=== PATIENT | male | born 1950 | race Caucasian/White ===

== ENCOUNTER 2016-07-25 13:35 | Inpatient (IN) | payer OTHER ==
[~2016-07-25] VITALS: Ht 182.9 cm; Wt 106.6 kg
[~2016-07-25 13:35] MED LIST: ATIVAN1 MG PO; CLONIDINE0.1 MG PO; CRESTOR20 MG PO; ESCITALOPRAM20 MG PO; FELODIPINE10 MG PO; LOMOTIL 2.5-0.1 EACH PO; METOPROLOL SUC100 MG PO; PROMETHAZINE HC25 M3 PO
--- NOTE | 2016-07-25 14:10 | NUR ---
PT BIBA FROM HOME S/P MAKING REMARKS TO HIS SISTER IN LAW ON THE PHONE. STATES THAT HE WANTS TO PUT A GUN IN HIS MOUTH AND KILL HIMSELF. STATES THAT HIS IS IN [facility] FOR REHAB AND HE HAS BEEN HAVING A HARD TIME DEALING WITH EVERYTHING. PT EMOTIONAL AT THIS TIME. ADMITS TO DRINKING A FEW SHOTS TODAY, DENIES ETOH DAILY. DENIES FEELING SI/HI AT THIS TIME. PT CALM/COOPERATIVE.
--- NOTE | 2016-07-25 14:12 | ED PSYCHIATRIC COMPLAINT ---
See Addendum History of Present Illness General Chief Complaint: Psychiatric Related Complaint Stated Complaint: BIBA +SI/ETOH Source: patient, EMS, police Exam Limitations: no limitations Vital Signs & Intake/Output Vital Signs & Intake/Output Vital Signs Date Time Temp Pulse Resp B/P B/P Pulse O2 O2 Flow FiO2 Mean Ox Delivery Rate 07/25 1753 97.9 95 20 140/94 100 Room Air 07/25 1528 97.9 83 18 139/88 98 Room Air 07/25 1428 98.0 88 18 133/61 98 Room Air Allergies Coded Allergies: NO KNOWN ALLERGIES (07/31/13) Reconcile Medications CLONIDINE HCL (Clonidine) 0.1 MG TABLET 1 TAB PO QPM withdrawal Diphenoxylate HCl/Atropine (Lomotil 2.5-0.025 MG Tablet) 2.5 MG-0.025 MG TABLET 1 TAB PO 4 TIMES/DAY PRN diarrhea Escitalopram Oxalate 20 MG TABLET 1 TAB PO DAILY DEPRESSION/ANXIETY (Reported ) Felodipine (Felodipine ER) 10 MG TAB.ER.24H 1 TAB PO DAILY BP (Reported) Lorazepam (Ativan) 1 MG TAB 1 TAB PO TID PRN ANXIETY/WITHDRAWAL [id number] to Stop at ADM: Metoprolol Succinate 100 MG TAB.ER.24H 100 MG PO DAILY BLOOD PRESSURE ( Reported) Promethazine HCl 25 MG TABLET 1 TAB PO Q6P PRN nausea Rosuvastatin Calcium (Crestor) 20 MG TABLET 1 TAB PO DAILY HIGH CHOLESTROL ( Reported) Triage Nurses Notes Reviewed? yes Onset: Abrupt Duration: unknown duration Severity: moderate, severe HPI: 65-year-old male brought in by ambulance on a PEC from police for suicidal ideation. Patient reports that he's been feeling very depressed lately. His recently had a stroke. He does not have any history of heavy drinking but reports some intermittent heavy drinking recently. He called his [id number] today. He made a comment that he wanted to put a gun in his mouth and just end it all. Denies any prior history of subtle thoughts. He reports it was a fleeting thought. He does admit to drinking a heavy amount of alcohol this morning. Patient is very emotional and crying. He does not have any other family members of the then the 2 mentioned already. His is currently at a long-term. When the police apparently arrived she was not answering his door. EMS reports they did not find any weapons and the patient denies owning any weapons. (ADAM SAMANO) Past History Travel History Traveled to [place] past 21 day No Medical History Any Pertinent Medical History? see below for history Cardiovascular: hypertension Surgical History Surgical History: L LEG SURGERY Psychosocial History Who do you live with Significant Other What is your primary language Syriac Family History Hx Contributory? No (ADAM SAMANO) Review of Systems Review of Systems Constitutional: Reports: no symptoms. EENTM: Reports: no symptoms. Respiratory: Reports: no symptoms. Cardiovascular: Reports: no symptoms. GI: Reports: no symptoms. Genitourinary: Reports: no symptoms. Musculoskeletal: Reports: no symptoms. Skin: Reports: no symptoms. Neurological/Psychological: Reports: see HPI. Hematologic/Endocrine: Reports: no symptoms. Immunologic/Allergic: Reports: no symptoms. All Other Systems: Reviewed and Negative (ADAM SAMANO) Physical Exam Physical Exam General Appearance: well developed/nourished, mild distress Head: atraumatic Eyes: Bilateral: normal appearance, EOMI. Ears, Nose, Throat: normal ENT inspection, hearing grossly normal Neck: normal inspection Respiratory: no respiratory distress Cardiovascular: regular rate/rhythm Extremities: normal range of motion Neurological/Psychiatric: awake, agitated, depressed affect, crying Appearance/Memory/Insight: disheveled Behavoir/Eye Contact/Speech: avoids eye contact, cooperative Thoughts/Hallucinations: no apparent hallucination Skin: intact, normal color, warm/dry SAD PERSONS SAD PERSONS Response Value Male Sex? yes 1 Age <19 or >45 years? yes 1 Depression/Hopelessness? yes 2 Excessive Ethanol/Drug Use? yes 1 Social Support? has support 0 Total 5 SAD PERSONS Done? yes (ADAM SAMANO) Progress Differential Diagnosis: dementia, drug intoxication, drug overdose, drug withdrawal, electrolyte abnormality, encephalitis, hypoglycemia, hypothyroidism, IC hem/mass/tumor, meningitis, depression, anxiety, bipolar Plan of Care: Orders Procedure Date/time Status Continuous Observation Monitor 07/25 1922 Active ED CRISIS PSYCH CONSULT 07/25 1406 Active URINE DRUGS OF ABUSE 07/25 1340 Complete ETHANOL 07/25 1340 Complete COMPREHENSIVE METABOLIC PANEL 07/25 1340 Complete CBC WITHOUT DIFFERENTIAL 07/25 1340 Complete Laboratory Tests 07/25/16 1424: Anion Gap 15, Estimated GFR > 60, BUN/Creatinine Ratio 13.3, Glucose 160 H, Calcium 8.8, Total Bilirubin 0.7, AST 53, ALT 83 H, Alkaline Phosphatase 85, Total Protein 6.8, Albumin 3.7, Globulin 3.1, Albumin/Globulin Ratio 1.2, CBC w Diff NO MAN DIFF REQ, RBC 4.67 L, MCV 89.3, MCH 31.3 H, RDW 14.7 H, MPV 7.4, Gran % 30.4 L, Lymphocytes % 57.5 H, Monocytes % 9.7 H, Eosinophils % 0.9, Basophils % 1.5, Absolute Granulocytes 1.3 L, Absolute Lymphocytes 2.5, Absolute Monocytes 0.4, Absolute Eosinophils 0, Absolute Basophils 0.1, PUBS MCHC 35.0, Serum Alcohol 219.0 07/25/16 1355: Urine Opiates Screen < 100.00, Methadone Screen < 40, Barbiturate Screen < 60, Ur Phencyclidine Scrn < 6.00, Amphetamines Screen < 100, U Benzodiazepines Scrn < 85, Urine Cocaine Screen < 50, Urine Cannabis Screen < 5.00 Hand-Off Endorsed To: RYANN BOB,IZZY Rivera Endorsed Time: 2219 Pending: consult (crisis) (ADAM SAMANO) Departure Departure Disposition: STILL A PATIENT Condition: Stable Clinical Impression Primary Impression: Suicidal ideation Secondary Impressions: Depression Referrals: PATIENT HAS NO PRIMARY CARE DR (PCP/Family) Departure Forms: Customer Survey General Discharge Information (ADAM SAMANO) PA/WASTE CHOPPER Co-Sign Statement Statement: ED Attending supervision documentation- [x] I saw and evaluated the patient. I have also reviewed all the pertinent lab results and diagnostic results. I agree with the findings and the plan of care as documented in the PA's/WASTE CHOPPER's documentation. [] I have reviewed the ED Record and agree with the PA's/WASTE CHOPPER's documentation. [] Additions or exceptions (if any) to the PAs/WASTE CHOPPER's note and plan are summarized below: [] (OLIVERIO OROZCO DO
[2016-07-25 14:32] LABS: ABSOLUTE BASOPHIL COUNT 0.1 /CUMM (0.0-0.2); ABSOLUTE EOSINOPHIL COUNT 0 /CUMM (0.0-0.7); ABSOLUTE GRANULOCYTE CT 1.3 /CUMM (1.4-6.5); ABSOLUTE LYMPH COUNT 2.5 /CUMM (1.2-3.4); ABSOLUTE MONOCYTE COUNT 0.4 /CUMM (0.10-0.60); BASOPHIL % 1.5 % (0.0-2.0); EOSINOPHIL % 0.9 % (0-5); GRANULOCYTE % 30.4 % (42.2-75.2); HEMATOCRIT 41.7 % (42-52); MEAN CORPUSCULAR HGB 31.3 PG (27.0-31.0); MEAN CORPUSCULAR VOLUME 89.3 FL (80.0-94.0); MEAN PLATELET VOLUME 7.4 FL (7.4-10.4); PLATELET COUNT 315 /CUMM (130-400); RBC DISTRIBUTION WIDTH 14.7 % (11.5-14.5); RED BLOOD CELL CT 4.67 /CUMM (4.70-6.10); WHITE BLOOD CELL COUNT 4.4 /CUMM (4.8-10.8)
--- NOTE | 2016-07-25 15:15 | NUR ---
REPORT RECEIVED. PT SLEEPING AT THIS TIME WITH REGULAR BREATHING PATTERN. SITTER AT THE DOOR.
--- NOTE | 2016-07-25 15:55 | NUR ---
PT ALERT AND ORIENTED X 3. DENIES SI/HI. PT STATING EMOTIONALLY "I JUST WANT TO GO HOME" EMOTIONAL SUPPORT PROVIDED. INFORMED WAIT TIME. PT CALM AND COOPERATIVE.
--- NOTE | 2016-07-25 16:08 | NUR ---
FINGER FOOD HAMBURGER TRAY ORDERRED FROM [facility].
--- NOTE | 2016-07-25 16:11 | NUR ---
PT KEEPS GETTING OUT OF BED WANTING TO GO HOME. ADVISED PT TO FOLLOW HOSPITAL PROTOCOL. PT REDIRECTABLE. ATIVAN 1MG PO GIVEN ORDERED. AWITING FINGER FOOD.
--- NOTE | 2016-07-25 17:05 | NUR ---
PT SLEEPING AT THIS TIME WITH NO REGULAR BREATHING PATTERNS.
--- NOTE | 2016-07-25 17:30 | NUR ---
FINGER FOOD GIVEN.
--- NOTE | 2016-07-25 18:20 | NUR ---
OCCASIONAL PT GETS OUT OF BED AND SAYING "I CAN NOT STAY HERE OVER NIGHT. I HAVE TO GO HOME." EXPLAINED PT TO FOLLOW HOSPITAL POLICY.
--- NOTE | 2016-07-25 18:24 | NUR ---
PT SPEAKING TO FAMILY MEMBER ON PHONE.
--- NOTE | 2016-07-25 18:48 | NUR ---
FAMILY MEMBERS AT BEDSIDE.
--- NOTE | 2016-07-25 19:16 | NUR ---
PT GETS ANXIOUS AND EMOTIONAL AT TIMES. KEEPS STATING "I CAN NOT STAY HERE. I HAVE TO GO HOME" PT REDIRECTED AND EXPLAINED THAT PT WILL BE EVALUATED BY CRISIS TOMORROW.
--- NOTE | 2016-07-25 19:19 | NUR ---
ASSUMED CARE OF PT PER CHAYA VIDAL. PT RESTING IN RM WITH RR, SITTER AT BEDSIDE FOR SAFETY.
--- NOTE | 2016-07-25 19:19 | NUR ---
FLAKITA GARCIA Nurse Note by: PETE ROWELL I agree with the TRAVELING OPERATOR findings/evaluation of this patient's condition. Entered by: PETE ROWELL Date: 07/25/16 Time: 1918
--- NOTE | 2016-07-25 19:57 | NUR ---
PT MEDICATED WITH 1MG ATIVAN PO TAB AND 50MG BENADRYL PO PER EMAR FOR ANXIETY. THIS RN EXPLAINED TO PT THAT THE MEDICATIONS TAKE A WHILE TO START WORKING AND THIS RN WILL CHECK BACK WITH PT WITHIN 1 HR TO SEE IF PT IS STILL FEELING ANXIOUS.
--- NOTE | 2016-07-25 20:15 | NUR ---
PT RESTING IN RM WITH RR, SITTER IN PLACE. WILL CONTINUE TO MONITOR
--- NOTE | 2016-07-25 21:24 | NUR ---
Crisis consult received, however the patient is not appropriate for evaluation, given that he has a high BAL. The patient will be held overnight and evaluated in the AM. Agusto Nugent met with the patient earlier this evening to inform him that he will not be evaluated until after his BAL is under the legal limit.
--- NOTE | 2016-07-25 22:35 | NUR ---
PT RESTING, PT STATES STILL ANXIOUS, REQUESTING A MEDICATION TO SLEEP. DR GARZON INFORMED
--- NOTE | 2016-07-25 23:50 | NUR ---
PT MEDICATED WITH 5MG MELATONIN PER EMAR
[2016-07-26] VITALS (8 sets, daily range): BP systolic 115–152; BP diastolic 78–108
--- NOTE | 2016-07-26 00:26 | NUR ---
PT ASLEEP AT THIS TIME W/RR NOTED. SITTER IN PLACE FOR SAFETY.
--- NOTE | 2016-07-26 03:05 | NUR ---
PT REMAINS ASLEEP AT THIS TIME W/ RR NOTED. NO APPARENT DISTRESS. SITTER REMAINS IN CLEAR VIEW. WILL CONTINUE TO MONITOR.
--- NOTE | 2016-07-26 05:34 | NUR ---
PT REMAINS ASLEEP AT THIS TIME WITH RR NOTED. NAD. SITTER REMAINS IN CLEAR VIEW. WILL CONTINUE TO MONITOR.
--- NOTE | 2016-07-26 06:41 | NUR ---
PT AWOKE FOR VITAL SIGNS. VSS. SITTER REMAINS IN PLACE FOR SAFETY. WILL CONTINUE TO MONITOR.
--- NOTE | 2016-07-26 07:20 | NUR ---
RESTING ON BED. RR WNL. AWAITING INITIAL CRISIS EVAL THIS AM. Informed waiting has been performed.
--- NOTE | 2016-07-26 07:34 | NUR ---
CRISIS AT BEDSIDE.
--- NOTE | 2016-07-26 08:10 | ED PSYCH CRISIS CONSULTATION ---
Crisis Consult Basic Assessment Date of Consult: 07/26/16 Responsible Person/Accompanied By: ARGENIS on PEER Insurance Authorization: Insurance #1: Insurance name: NEYMAR Phone number: Policy number: [id number] Group number: [id number] Authorization number: ED Provider: Patient's ED Provider: ADAM SAMANO Primary Care Physician: Patient's PCP: PATIENT HAS NO PRIMARY CARE DR PCP's Phone Number: Current Psychiatrist: None Chief Complaint: Psychiatric Related Complaint Patient's Quote: " I just had a bad day yesterday" Present Illness: The patient is a 65 year old, , male brought in by ambulance, on a PEER, after making a suicidal statement. The patient presented anxious with depressed mood and was tearful throughout the evaluation. The patient reports that he has been feeling very overwhelmed since his had a stroke on 2015. The patient notes that she is currently at [facility] and having difficultly communicating and remains paralyzed on her right arm. The patient notes that he has been struggling to take care of himself and the bills. He reports that he fell behind on the mortgage, his car broke and he owes money to the IRS, resulting in them garnishing $500 from his paycheck weekly. 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 He states that he did not go into work yesterday and that instead he drank about 5-6 nippers of "Fireball. " While he was intoxicated he contacted his [id number] Raysa Vazquez and made comments about killing himself with a gun, of note he denies having any access to guns. He denies any current alcohol abuse, despite having a history of abusing alcohol and Oxycontin. He reports that he only drinks alcohol 1x weekly and will have "4 nips at a time." He denies any current or history of mental health or substance abuse issues or treatment. He notes that he also felt very overwhelmed when his first had the stroke, however he was able to "get himself out of it." He denies any current or history of SI / HI / AH / VH. He would like to go home to his 2 cats and is not sure that he would like any outpatient treatment. SW left a note for his sister in law- Raysa VazquezEgiadl-[phone]- and will await a call back for collateral. Patient's Address: [address] [place] [address] Other Phone Number: Who Do You Live With? Other (see notes) (2 cats and usually ) Family/Informants Interviewed: Message left for the patients sister in law Raysa Vazquez [phone] Allergies - Coded Allergies: NO KNOWN ALLERGIES (07/31/13) Current Medications - Scheduled Medications CLONIDINE HCL (Clonidine) 0.1 MG TABLET 1 TAB PO QPM withdrawal #15 TAB Prescribed by POOJA SANTACRUZ MD on 02/14/14 Escitalopram Oxalate 20 MG TABLET 1 TAB PO DAILY DEPRESSION/ANXIETY #30 ( Reported) Entered as Reported by WILFRED KING on 02/14/14 1547 Felodipine (Felodipine ER) 10 MG TAB.ER.24H 1 TAB PO DAILY BP #30 (Reported) Entered as Reported by WILFRED KNIG on 02/14/14 1546 Metoprolol Succinate 100 MG TAB.ER.24H 100 MG PO DAILY BLOOD PRESSURE #90 ( Reported) Entered as Reported by ANTHONY KRISHNAMURTHY on 07/31/13 0732 Rosuvastatin Calcium (Crestor) 20 MG TABLET 1 TAB PO DAILY HIGH CHOLESTROL #30 TAB (Reported) Entered as Reported by ANTHONY KRISHNAMURTHY on 07/31/13 0730 Scheduled PRN Medications Diphenoxylate HCl/Atropine (Lomotil 2.5-0.025 MG Tablet) 2.5 MG-0.025 MG TABLET 1 TAB PO 4 TIMES/DAY PRN diarrhea #20 TAB Prescribed by JACQUELINE NOWAK PA-C on 04/02/16 Lorazepam (Ativan) 1 MG TAB 1 TAB PO TID PRN ANXIETY/WITHDRAWAL #10 Prescribed by POOJA SANTACRUZ MD on 02/14/14 Promethazine HCl 25 MG TABLET 1 TAB PO Q6P PRN nausea #20 TAB Prescribed by JACQUELINE NOWAK PA-C on 04/02/16 Laboratory Results: Laboratory Tests 07/25/16 1424: Anion Gap 15, Estimated GFR > 60, BUN/Creatinine Ratio 13.3, Glucose 160 H, Calcium 8.8, Total Bilirubin 0.7, AST 53, ALT 83 H, Alkaline Phosphatase 85, Total Protein 6.8, Albumin 3.7, Globulin 3.1, Albumin/Globulin Ratio 1.2, CBC w Diff NO MAN DIFF REQ, RBC 4.67 L, MCV 89.3, MCH 31.3 H, RDW 14.7 H, MPV 7.4, Gran % 30.4 L, Lymphocytes % 57.5 H, Monocytes % 9.7 H, Eosinophils % 0.9, Basophils % 1.5, Absolute Granulocytes 1.3 L, Absolute Lymphocytes 2.5, Absolute Monocytes 0.4, Absolute Eosinophils 0, Absolute Basophils 0.1, PUBS MCHC 35.0, Serum Alcohol 219.0 07/25/16 1355: Urine Opiates Screen < 100.00, Methadone Screen < 40, Barbiturate Screen < 60, Ur Phencyclidine Scrn < 6.00, Amphetamines Screen < 100, U Benzodiazepines Scrn < 85, Urine Cocaine Screen < 50, Urine Cannabis Screen < 5.00 Past History Past Medical History Cardiovascular: hypertension Past Surgical History Surgical History: L LEG SURGERY Psychosocial History Strengths/Capabilities: The patient does have stable employment and housing. He does have a desire to feel better. Physical Limitations (Interventions): None noted Psychiatric Treatment History Psych Treatment Psychiatric Treatment No Inpatient Treatment No Outpatient Treatment No Location of Treatment N/A Reason for Treatment N/A Dates of Treatment N/A Response to Treatment N/A Diagnosis by History: N/A Substance Use/Abuse History Drug Use/Abuse Substances Used/Abused Yes Substance Used/Abused Alcohol First Use 18 years old Last Used Yesterday: 07/25/2016 How much used/taken "5-6 nips of fireball" How often 1x weekly For how long Unclear Route of use Oral Substance Abuse Treatment Substance Abuse Treatment Past Substance Abuse TX No Inpatient Treatment No Outpatient Treatment No Location of Treatment N/A Reason for Treatment N/A Dates of Treatment N/A Response to Treatment N/A Comments: N/A Current Mental Status Mental Status Orientation: Person, Place, Situation Affect: Anxious, Depressed Speech: WNL Neuro-vegetative: Appetite Decreased, Concentration Poor, Energy Decreased Appearance Appearance- Dress/Hygiene: The patient was sitting in bed, disheveled, anxious, with good eye contact and participation in the evaluation. Behaviors Thought Process: WNL Thought Content: WNL Memory: WNL Insight: WNL SI/HI Risk Assessment Past Suicidal Ideation/Attempts No Current Suicidal Ideation/Att No (Made statements to kill self) Past Homicidal Ideation/Att: No Current Homicidal Ideation/Attempts No Degree of Intent: The patient drank alcohol yesterday and called his sister-in- law and made suicidal statements. He made comments about shooting himself with a gun. Danger To: Self Gravely Disabled: N/A Risk Factors: substance abuse, isolate/no social support, male, limited support Lethality Ratin PTSD Checklist PTSD Done? patient declined (Pt. denies trauma or abuse tx) ED Management Sitter: Yes Restraints: No DSM5/PS Stressors/Medical Prob Diagnosis' (DSM 5, Stressors, Medical): F32.9 Unspecified depressive disorder F10.20 Alcohol Use disorder, moderate Medical: High Blood Pressure Stressors: Medical issues with and finances Current GAF: 28 Comments: N/A Departure Disposition Psych Medical Clearance Date: 07/26/16 Medically Cleared at: 0700 Time Started: 0715 Time Ended: 08 Psychiatrist Consulted: Isiah Banks MD Date Disposition Established: 07/26/16 Time Disposition Established: 814 Plan for Disposition - Modality: Inpatient Psychiatry Facility: [facility] Rationale for Disposition: The patient presented to the ED on a PEER, after making suicidal statements to his sister in law. The patient stated that he wanted to shoot himself with a gun. The patient denies feeling suicidal today, however does admit to increasing depression and stressors. His had a stroke on 2015 and has been at treatment at [facility]. He has been having difficulty taking care of his finances; recently had his car break, the IRS is garnishing wages and he is behind on mortgage. He has been using alcohol and was intoxicated when he arrived. Case discussed with Dr. Banks and he finds the patient to be an acute risk to self and in need of an inpatient hospitalization at this time. Type of IP Admission: Voluntary Additional Instructions: N/A Referrals PATIENT HAS NO PRIMARY CARE DR (PCP/Family)
--- NOTE | 2016-07-26 08:15 | NUR ---
PLAN IS FOR ADMISSION TO [facility]. Informed waiting has been performed.
--- NOTE | 2016-07-26 09:34 | IP CRISIS DIAG ASSESS PSYCH ---
See Addendum Diagnostic Assessment Basic Assessment Insurance Authorization: Insurance #1: Insurance name: NEYMAR Phone number: Policy number: [id number] Group number: [id number] Authorization number: Primary Care Physician: Patient's PCP: PATIENT HAS NO PRIMARY CARE DR PCP's Phone Number: Patient's Quote: " I just had a bad day yesterday" Present Illness: The patient is a 65 year old, , male brought in by ambulance, on a PEER, after making a suicidal statement. The patient presented anxious with depressed mood and was tearful throughout the evaluation. The patient reports that he has been feeling very overwhelmed since his had a stroke on 2015. The patient notes that she is currently at [facility] and having difficultly communicating and remains paralyzed on her right arm. The patient notes that he has been struggling to take care of himself and the bills. He reports that he fell behind on the mortgage, his car broke and he owes money to the IRS, resulting in them garnishing $500 from his paycheck weekly. 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 He states that he did not go into work yesterday and that instead he drank about 5-6 nippers of "Fireball. " While he was intoxicated he contacted his ndquaa-az-rpz Raysa Vazquez and made comments about killing himself with a gun, of note he denies having any access to guns. He denies any current alcohol abuse, despite having a history of abusing alcohol and Oxycontin. He reports that he only drinks alcohol 1x weekly and will have "4 nips at a time." He denies any current or history of mental health or substance abuse issues or treatment. He notes that he also felt very overwhelmed when his first had the stroke, however he was able to "get himself out of it." He denies any current or history of SI / HI / AH / VH. He would like to go home to his 2 cats and is not sure that he would like any outpatient treatment. SW left a note for his sister in law- Raysa VazquezPvepuc-[phone]- and will await a call back for collateral. Patient's Address: [address] [place] [address] Other Phone Number: Who Do You Live With? Other (see notes) (2 cats and usually ) Feel Safe Where You Live? Yes Feel Safe in Your Relationship Yes Marital Status: Do You Have Children? No Primary Language? Divehi Family/Informants Interviewed: Message left for the patients sister in law Raysa Vazquez [phone] Allergies - Coded Allergies: NO KNOWN ALLERGIES (07/31/13) Current Medications - Scheduled Medications CLONIDINE HCL (Clonidine) 0.1 MG TABLET 1 TAB PO QPM withdrawal #15 TAB Prescribed by POOJA SANTACRUZ MD on 02/14/14 Escitalopram Oxalate 20 MG TABLET 1 TAB PO DAILY DEPRESSION/ANXIETY #30 ( Reported) Entered as Reported by WILFRED KING on 02/14/14 1547 Felodipine (Felodipine ER) 10 MG TAB.ER.24H 1 TAB PO DAILY BP #30 (Reported) Entered as Reported by WILFRED KING on 02/14/14 1546 Metoprolol Succinate 100 MG TAB.ER.24H 100 MG PO DAILY BLOOD PRESSURE #90 ( Reported) Entered as Reported by ANTHONY KRISHNAMURTHY on 07/31/13 0732 Rosuvastatin Calcium (Crestor) 20 MG TABLET 1 TAB PO DAILY HIGH CHOLESTROL #30 TAB (Reported) Entered as Reported by ANTHONY KRISHNAMURTHY on 07/31/13 0730 Scheduled PRN Medications Diphenoxylate HCl/Atropine (Lomotil 2.5-0.025 MG Tablet) 2.5 MG-0.025 MG TABLET 1 TAB PO 4 TIMES/DAY PRN diarrhea #20 TAB Prescribed by JACQUELINE NOWAK PA-C on 04/02/16 Lorazepam (Ativan) 1 MG TAB 1 TAB PO TID PRN ANXIETY/WITHDRAWAL #10 Prescribed by POOJA SANTACRUZ MD on 02/14/14 Promethazine HCl 25 MG TABLET 1 TAB PO Q6P PRN nausea #20 TAB Prescribed by JACQUELINE NOWAK PA-C on 04/02/16 Consequences of Psych Med Use: N/A Comment: N/A Lab Results: Laboratory Tests 07/25/16 1424: Anion Gap 15, Estimated GFR > 60, BUN/Creatinine Ratio 13.3, Glucose 160 H, Calcium 8.8, Total Bilirubin 0.7, AST 53, ALT 83 H, Alkaline Phosphatase 85, Total Protein 6.8, Albumin 3.7, Globulin 3.1, Albumin/Globulin Ratio 1.2, CBC w Diff NO MAN DIFF REQ, RBC 4.67 L, MCV 89.3, MCH 31.3 H, RDW 14.7 H, MPV 7.4, Gran % 30.4 L, Lymphocytes % 57.5 H, Monocytes % 9.7 H, Eosinophils % 0.9, Basophils % 1.5, Absolute Granulocytes 1.3 L, Absolute Lymphocytes 2.5, Absolute Monocytes 0.4, Absolute Eosinophils 0, Absolute Basophils 0.1, PUBS MCHC 35.0, Serum Alcohol 219.0 07/25/16 1355: Urine Opiates Screen < 100.00, Methadone Screen < 40, Barbiturate Screen < 60, Ur Phencyclidine Scrn < 6.00, Amphetamines Screen < 100, U Benzodiazepines Scrn < 85, Urine Cocaine Screen < 50, Urine Cannabis Screen < 5.00 Toxicology Screen Completed? Yes Results: negative Symptoms of Use: N/A Past History Past Medical History Medical History: Hypertension, hip replaced Past Surgical History Surgical History non-contributory Abuse/Trauma History Trauma History/Current Trauma: Denies Legal History Current Legal Status: none Have you ever been arrested? 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 He does have a desire to feel better. Physical Limitations (Interventions): None noted Psychiatric Treatment History Psych Treatment Psychiatric Treatment No Inpatient Treatment No Outpatient Treatment No Location of Treatment N/A Reason for Treatment N/A Dates of Treatment N/A Response to Treatment N/A Diagnosis by History: N/A Risk Factors: substance abuse, isolate/no social support, male, limited support Substance Use/Abuse History Drug Use/Abuse minimum 12mo Hx Substances Used/Abused Yes Substance Used/Abused Alcohol First Use 18 years old Last Used Yesterday: 07/25/2016 How much used/taken "5-6 nips of fireball" How often 1x weekly For how long Unclear Route of use Oral Substance Abuse Treatment Substance Abuse Treatment Past Substance Abuse [place] No Inpatient Treatment No Outpatient Treatment No Location of Treatment N/A Reason for Treatment N/A Dates of Treatment N/A Response to Treatment N/A Comments: N/A Sexual History Sexual Concerns: None noted Education History Highest Level of Education: Associates Degree Preferred Learning Style: Unknown Current Mental Status Mental Status Orientation: Person, Place, Situation Affect: Anxious, Depressed Speech: WNL Neuro-vegetative: Appetite Decreased, Concentration Poor, Energy Decreased Appearance Appearance- Dress/Hygiene: The patient was sitting in bed, disheveled, anxious, with good eye contact and participation in the evaluation. Behaviors Thought Process: WNL Thought Content: WNL Memory: WNL Insight: WNL SI/HI Risk Assessment - Minimum 6mo History- Past Suicidal Ideation/Attempts No Current Suicidal Ideation/Att No (Made statements to kill self) Past Homicidal Ideation/Att: No Current Homicidal Ideation/Attempts No Degree of Intent: The patient drank alcohol yesterday and called his sister-in- law and made suicidal statements. He made comments about shooting himself with a gun. Danger To: Self Gravely Disabled: N/A Risk Factors: substance abuse, isolate/no social support, male, limited support Lethality Ratin Needs/Init TX Plan/Goals: Admit to inpatient for safety and symptom stability. Attend individual and group sessions. Work with treatment team to transition to care in the community. Medication evaluation. AUDIT-C Questionnaire: AUDIT-C Questionnaire: Response Value ETOH use in the past year 2-4 times/month 2 # drinks typical/day 3 or 4 1 6 or > drinks per occasion Less than monthly 1 Total 4 DSM5/PS Stressors/Medical Prob Diagnosis' (DSM 5, Stressors, Medical): F32.9 Unspecified depressive disorder F10.20 Alcohol Use disorder, moderate Medical: High Blood Pressure Stressors: Medical issues with and finances Current GAF: 28 Comments: N/A
--- NOTE | 2016-07-26 09:40 | SOCIAL WORKER SOCIAL HX PSYCH ---
Social History Basic Assessment Insurance Authorization: Insurance #1: Insurance name: NEYMAR Phone number: Policy number: [id number] Group number: [id number] Authorization number: Curr Source of Income/Entitlements: employment Primary Care Physician: Patient's PCP: PATIENT HAS NO PRIMARY CARE DR PCP's Phone Number: Present Problem: The patient is a 65 year old, , male brought in by ambulance, on a PEER, after making a suicidal statement. The patient presented anxious with depressed mood and was tearful throughout the evaluation. The patient reports that he has been feeling very overwhelmed since his had a stroke on 2015. The patient notes that she is currently at [facility] and having difficultly communicating and remains paralyzed on her right arm. The patient notes that he has been struggling to take care of himself and the bills. He reports that he fell behind on the mortgage, his car broke and he owes money to the IRS, resulting in them garnishing $500 from his paycheck weekly. 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 He states that he did not go into work yesterday and that instead he drank about 5-6 nippers of "Fireball. " While he was intoxicated he contacted his [id number]-tx-rex Raysa Vazquez and made comments about killing himself with a gun, of note he denies having any access to guns. He denies any current alcohol abuse, despite having a history of abusing alcohol and Oxycontin. He reports that he only drinks alcohol 1x weekly and will have "4 nips at a time." He denies any current or history of mental health or substance abuse issues or treatment. He notes that he also felt very overwhelmed when his first had the stroke, however he was able to "get himself out of it." He denies any current or history of SI / HI / AH / VH. He would like to go home to his 2 cats and is not sure that he would like any outpatient treatment. Primary Language? Slovenian Living Situation Rents or Owns Home? owns Residential Care/Treatment Fac N/A Feel Safe Where You Are Living Yes Feel Safe in Relationships? Yes Comments: N/A Allergies - Coded Allergies: NO KNOWN ALLERGIES (07/31/13) Current Medications - Scheduled Medications CLONIDINE HCL (Clonidine) 0.1 MG TABLET 1 TAB PO QPM withdrawal #15 TAB Prescribed by POOJA SANTACRUZ MD on 02/14/14 Escitalopram Oxalate 20 MG TABLET 1 TAB PO DAILY DEPRESSION/ANXIETY #30 ( Reported) Entered as Reported by WILFRED KING on 02/14/14 1547 Felodipine (Felodipine ER) 10 MG TAB.ER.24H 1 TAB PO DAILY BP #30 (Reported) Entered as Reported by WILFRED KING on 02/14/14 1546 Metoprolol Succinate 100 MG TAB.ER.24H 100 MG PO DAILY BLOOD PRESSURE #90 ( Reported) Entered as Reported by ANTHONY KRISHNAMURTHY on 07/31/13 0732 Rosuvastatin Calcium (Crestor) 20 MG TABLET 1 TAB PO DAILY HIGH CHOLESTROL #30 TAB (Reported) Entered as Reported by ANTHONY KRISHNAMURTHY on 07/31/13 0730 Scheduled PRN Medications Diphenoxylate HCl/Atropine (Lomotil 2.5-0.025 MG Tablet) 2.5 MG-0.025 MG TABLET 1 TAB PO 4 TIMES/DAY PRN diarrhea #20 TAB Prescribed by JACQUELINE NOWAK PA-C on 04/02/16 Lorazepam (Ativan) 1 MG TAB 1 TAB PO TID PRN ANXIETY/WITHDRAWAL #10 Prescribed by POOJA SANTACRUZ MD on 02/14/14 Promethazine HCl 25 MG TABLET 1 TAB PO Q6P PRN nausea #20 TAB Prescribed by JACQUELINE NOWAK PA-C on 04/02/16 Consequences of Psych Med Use: N/A Comments: N/A Past History Past Medical History Cardiovascular: hypertension Past Surgical History Surgical History: L LEG SURGERY /Family History Place/Country of Origin: [place], [place] Childhood Family Constellation: Mother, father and 1 brother. Primary Childhood Caretakers: father, mother Family Life During Childhood: "Great" DCF Involvement? No Mother's Age (Current/): 89 ( in 2011) Relationship w/Mother: "Great, I miss them" Father's Age (Current/): 86 ( 2009) Relationship w/Father: "Great, I miss them" Any Sibling(s)? Yes Sibling's Gender(s)/Age(s): male Sibling 1: Relationship w/Sibling(s): The patient notes that he does not speak to his brother, as they had a falling out when their parents . Relationship w/Friends: The patient notes that he does have 2 sets of best friends, notin one set just moved to [place] and the other set is "driving around in their [address],000 mobile home. " Family Psych/Sub Abuse/Add Hx: None noted Other Comments: N/A Abuse/Trauma History Trauma History/Current Trauma: Denies Legal History Legal Guardian/Address/Phone: Self Current Legal Status: none Pending Court Dates: N/A Have you ever been arrested No Number of Arrests: 0 Hx of Juvenile Legal Charges? No Hx of Adult Legal Charges? No Civil Proceedings: N/A Domestic Relations Court: N/A Child Protective Serv Involvmnt N/A Card Placer N/A Psychosocial History Primary Support System: Limited supports- the patient states that he has 2 cats for support. Strengths/Capabilities: The patient does have stable employment and housing. He does have a desire to feel better. Weaknesses: The patient has been abusing alcohol to cope with stressors. Physical Limitations (Interventions): None noted Last Physical: Unknown History of Seizures? No History of Blackouts? No ADL Limitations: The patient appears disheveled. [place]/Social/Peer Relations The patient notes that he does have 2 sets of best friends, notin one set just moved to [place] and the other set is "driving around in their 200,000 mobile home. " Meaningful Activities: The patient notes that he used to like to work on his motorcycle and fix things, however notes that he hs not been doing that. Childhood Anglican: "Pentecostalism Mosotho Malay Cheondoism" Current Orthodox Affiliation: Pentecostalism Mosotho Malay Cheondoism Is Spirituality Important to You? " I do pray" Cultural/Ethnic Issues: None noted Are There Developmental Issues? No Psychiatric Treatment History Psych Treatment Inpatient Treatment No Outpatient Treatment No Location of Treatment N/A Reason for Treatment N/A Dates of Treatment N/A Response to Treatment N/A Current Back Tender Paper Machine: None-patient denies Treatment of Prior Episodes: None- pt. denies Diagnosis: N/A Psychodynamic Issues: His is currently at [facility], recovering after having a stroke. Risk Factors: substance abuse, isolate/no social support, male, limited support Substance Use/Abuse History Drug Use/Abuse Substance Used/Abused Alcohol First Use 18 years old Last Used Yesterday: 07/25/2016 How much used/taken "5-6 nips of fireball" How often 1x weekly For how long Unclear Route of use Oral Have Had Periods of Sobriety? Yes Explain: The patient states that he has not not been abusing alcohol and that he only drinks 1 time a week. Relapse History? Yes Explain: N/A Have You Ever Attended AA? No Do You Attend AA Currently? No Do You Have a Sponsor? No Other Community Resources Used: None noted- The patient states that he has never attended mental health or substance abuse treatment. Symptoms of Use: N/A Substance Abuse Treatment Substance Abuse Treatment Inpatient Treatment No Outpatient Treatment No Location of Treatment N/A Reason for Treatment N/A Dates of Treatment N/A Response to Treatment N/A Comments: N/A Sexual History Sexual Concerns: None noted Education History Highest Level of Education: Associates Degree Highest Grade Completed: 12 grade Vocational Year Completed: N/A Number of College Years: 2 College Degree/Major: Certificate to work on planes / mechanics Other Degree(s): N/A Preferred Learning Style: Unknown HX of Learning Difficulties: None reported Barriers to Learning: None reported Special Communication Needs: None reported Employment History Employment Employed Not in Labor Force: N/A Vocation/Occupational Hx: 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 of Jobs in Last 5 Years: 1 Attendance: Recently called out of work, secodary to stressors Comments: N/A History Have You Been in The ? No If Yes, Explain: N/A Type of Discharge: N/A Date of Discharge: N/A Current Mental Status Mental Status Orientation: Person, Place, Situation Affect: Anxious, Depressed Speech: WNL Neuro-vegetative: Appetite Decreased, Concentration Poor, Energy Decreased Appearance Appearance- Dress/Hygiene: The patient was sitting in bed, disheveled, anxious, with good eye contact and participation in the evaluation. Behaviors Thought Process: WNL Thought Content: WNL Memory: WNL Insight: WNL SI/HI Risk Assessment Past Suicidal Ideation/Attempts No Current Suicidal Ideation/Att No (Made statements to kill self) Past Homicidal Ideation/Att: No Current Homicidal Ideation/Attempts No Degree of Intent: The patient drank alcohol yesterday and called his sister-in- law and made suicidal statements. He made comments about shooting himself with a gun. Danger To: Self Gravely Disabled: N/A Risk Factors: High Anxiety/Distress, Male, Substance Abuse Lethality Ratin - Conclusion and Recommendations for treatment - and discharge planning Summary: The patient presented to the ED on a PEER, after making suicidal statements to his sister in law. The patient stated that he wanted to shoot himself with a gun. The patient denies feeling suicidal today, however does admit to increasing depression and stressors. His had a stroke on 2015 and has been at treatment at [facility]. He has been having difficulty taking care of his finances; recently had his car break, the IRS is garnishing wages and he is behind on mortgage. He has been using alcohol and was intoxicated when he arrived.
--- NOTE | 2016-07-26 10:15 | NUR ---
MEDICATED PER EMAR.
--- NOTE | 2016-07-26 10:46 | NUR ---
REPORT TO ED IN [facility].
--- NOTE | 2016-07-26 11:03 | NUR ---
PT TO [facility] VIA W/C WITH TRANSPORT AND SECURITY. ALL PAPERWORK SENT. 1 BELONGING BAG AND 1 VALUABLE BAG SENT WITH PT. CLINICAL STATUS UNCHANGED.
--- NOTE | 2016-07-26 12:34 | NUR ---
Admitted from ED on voluntary for depression made an SI statement that he describes as impulsive due to feeling overwhelmed about situational stressors and not as a prelude to self harm. denied self harm when asked. Mood is stable, euthymic affect. medical hx of HTN, BP and HR elevated. Reports sporadic compliance with medications HIM CODER. Reports not taking suboxone for about a week HIM CODER. Had been prescribed suboxone due to opioid dependence due to pain medications prescribed after injury and the left hip replacement. is current;ly a patient at [facility] after a stroke and comes home on weekends.
[2016-07-26] MEDS ORDERED: SUBOXONE 8 MG-1 EACH PO (13:29)
[2016-07-26] MEDS ORDERED: VITAMIN D250000 UNIT PO (13:31)
--- NOTE | 2016-07-26 15:46 | History & Physical ---
General Information and HPI MD Statement: I have seen and personally examined FLAKITA GARCIA and documented this H&P. The patient is a 65 year old M who presented with a patient stated chief complaint of feeling depessed Source of Information: patient Exam Limitations: no limitations History of Present Illness: 65-year-old male with past medical history significant for hypertension, hyperlipidemia, depression who is admitted to Inpatient Psychiatry with complaints of feeling depressed. Patient's had a stroke last year her [facility] and since then she is admitted to [facility]. Patient has been depressed because of that. Reportedly he made some statements over the phone with his kdefkj-ge-aji that he just wants to end everything and he wants to give himself with a gun. He was getting frustrated with all the bills and also thinks that he has to do. The hcoxjw-hb-xfw in turn had called the police and patient was brought into the hospital and then admitted to Inpatient Psychiatry. Currently upon my interview with the patient he denies any SI, HI. He claims that he was just stupid that he made those statements. He is overall feeling depressed but he thinks that he can get through this. He works at [employer]. He currently denies any chest pain, shortness of breath, headaches, urinary problems, abdominal pain, nausea, vomiting, but does admit to some diarrhea. Allergies/Medications Allergies: Coded Allergies: NO KNOWN ALLERGIES (07/31/13) Home Med list Buprenorphine HCl/Naloxone HCl (Suboxone 8 MG-2 MG Sl Film) 8 MG-2 MG FILM 1 FILM PO TIDAC MENTAL HEALTH (Reported) CLONIDINE HCL (Clonidine) 0.1 MG TABLET 1 TAB PO QPM withdrawal Diphenoxylate HCl/Atropine (Lomotil 2.5-0.025 MG Tablet) 2.5 MG-0.025 MG TABLET 1 TAB PO 4 TIMES/DAY PRN diarrhea Ergocalciferol (Vitamin D2) (Vitamin D2) 50,000 UNIT CAPSULE 1 CAP PO DAILY VITAMIN SUPPORT (Reported) Escitalopram Oxalate 20 MG TABLET 1 TAB PO DAILY DEPRESSION/ANXIETY (Reported ) Felodipine (Felodipine ER) 10 MG TAB.ER.24H 1 TAB PO DAILY BP (Reported) Lorazepam (Ativan) 1 MG TAB 1 TAB PO TID PRN ANXIETY/WITHDRAWAL [id number] to Stop at ADM: Metoprolol Succinate 100 MG TAB.ER.24H 100 MG PO DAILY BLOOD PRESSURE ( Reported) Promethazine HCl 25 MG TABLET 1 TAB PO Q6P PRN nausea Rosuvastatin Calcium (Crestor) 20 MG TABLET 1 TAB PO DAILY HIGH CHOLESTROL ( Reported) Past History Travel History Traveled to [place] past 21 day No Medical History Neurological: NONE EENT: NONE Cardiovascular: hypertension, hyperlipidemia Respiratory: NONE Gastrointestinal: NONE Hepatic: NONE Renal: NONE Musculoskeletal: fracture Endocrine: NONE Blood Disorders: NONE Cancer(s): NONE History of MRSA: No History of VRE: No History of CDIFF: No Isolation History: Standard Surgical History Surgical History: L LEG SURGERY Past Family/Social History Family History Relations & Conditions if any MOTHER Relation not specified for: FH: dementia Psychosocial History Where do you live? 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 EENTM: Reports: see HPI. Cardiovascular: Reports: see HPI. Respiratory: Reports: see HPI. GI: Reports: see HPI. Genitourinary: Reports: see HPI. Musculoskeletal: Reports: see HPI. Skin: Reports: see HPI. Neurological/Psychological: Reports: see HPI. Exam & Diagnostic Data Last 24 Hrs of Vital Signs/I&O Vital Signs Date Time Temp Pulse Resp B/P B/P Pulse O2 O2 Flow FiO2 Mean Ox Delivery Rate 07/26 1338 104 145/78 07/26 1133 98.8 108 152/108 07/26 1133 98.8 108 152/108 07/26 1054 98.0 98 18 138/88 98 Room Air 07/26 1015 98.1 100 18 142/98 07/26 1015 98.1 100 18 142/98 07/26 1015 98.1 100 18 142/98 07/26 0901 98.1 100 18 142/98 95 Room Air 07/26 0641 98.9 88 18 148/91 100 Room Air 07/26 0109 98.8 102 19 158/100 95 Room Air 07/25 2301 98.6 99 18 163/108 96 Room Air 07/25 1753 97.9 95 20 140/94 100 Room Air Intake & Output 07/26 1600 07/26 0800 07/26 0000 Intake Total Output Total Balance Patient 235 lb Weight Physical Exam General Appearance Alert, Oriented X3, Cooperative Skin No Rashes HEENT PERRLA Neck Supple Cardiovascular Regular Rate, Normal S1, Normal S2 Lungs Clear to Auscultation Abdomen Normal Bowel Sounds, Soft, No Tenderness Neurological Cranial Nerves II through XII: intact Extremities No Edema Last 24 Hrs of Labs/Rivera: Laboratory Tests 07/25 07/25 1424 1355 Chemistry Sodium (137 - 145 mmol/L) 141 Potassium (3.5 - 5.1 mmol/L) 3.5 Chloride (98 - 107 mmol/L) 101 Carbon Dioxide (22 - 30 mmol/L) 25 Anion Gap (5 - 16) 15 BUN (9 - 20 mg/dL) 8 L Creatinine (0.7 - 1.2 mg/dL) 0.6 L Estimated GFR (>60 ml/min) > 60 BUN/Creatinine Ratio (7 - 25 %) 13.3 Glucose (65 - 99 mg/dL) 160 H Hemoglobin A1c (4.2 - 5.8 %) 5.9 H Calcium (8.4 - 10.2 mg/dL) 8.8 Magnesium (1.6 - 2.3 mg/dL) 1.7 Total Bilirubin (0.2 - 1.3 mg/dL) 0.7 AST (17 - 59 U/L) 53 ALT (21 - 72 U/L) 83 H Alkaline Phosphatase (< 127 U/L) 85 Total Protein (6.3 - 8.2 g/dL) 6.8 Albumin (3.5 - 5.0 g/dL) 3.7 Globulin (1.9 - 4.2 gm/dL) 3.1 Albumin/Globulin Ratio (1.1 - 2.2 %) 1.2 TSH &T3 &Free T4 Intrp (0.27 - 4.20 uIU/mL) 1.070 Hematology CBC w Diff NO MAN DIFF REQ WBC (4.8 - 10.8 /CUMM) 4.4 L RBC (4.70 - 6.10 /CUMM) 4.67 L Hgb (14.0 - 18.0 G/DL) 14.6 Hct (42 - 52 %) 41.7 L MCV (80.0 - 94.0 FL) 89.3 MCH (27.0 - 31.0 PG) 31.3 H RDW (11.5 - 14.5 %) 14.7 H Plt Count (130 - 400 /CUMM) 315 MPV (7.4 - 10.4 FL) 7.4 Gran % (42.2 - 75.2 %) 30.4 L Lymphocytes % (20.5 - 51.1 %) 57.5 H Monocytes % (1.7 - 9.3 %) 9.7 H Eosinophils % (0 - 5 %) 0.9 Basophils % (0.0 - 2.0 %) 1.5 Absolute Granulocytes (1.4 - 6.5 /CUMM) 1.3 L Absolute Lymphocytes (1.2 - 3.4 /CUMM) 2.5 Absolute Monocytes (0.10 - 0.60 /CUMM) 0.4 Absolute Eosinophils (0.0 - 0.7 /CUMM) 0 Absolute Basophils (0.0 - 0.2 /CUMM) 0.1 PUBS MCHC (33.0 - 37.0 G/DL) 35.0 Toxicology Urine Opiates Screen (>2000 NG/ML) < 100.00 Buprenorphine & Metab (NEGATIVE) POSITIVE Methadone Screen (>300 NG/ML) < 40 Barbiturate Screen (>200 NG/ML) < 60 Ur Phencyclidine Scrn (>25 NG/ML) < 6.00 Amphetamines Screen (>1000 NG/ML) < 100 U Benzodiazepines Scrn (>200 NG/ML) < 85 Urine Cocaine Screen (>300 NG/ML) < 50 Urine Cannabis Screen (>50 NG/ML) < 5.00 Serum Alcohol (<10 MG/DL) 219.0 Assessment/Plan Assessment: 65-year-old male with past medical history significant for hypertension, hyperlipidemia, depression who is admitted to Inpatient Psychiatry with worsening depression as well as suicidal ideation. Patient hypertension or hyperlipidemia I will continue him on his home medications. Patient currently denies any suicidal ideation in front of me. I will leave the psych management per psychiatrist. He claims that he had diarrhea, if diarrhea continues then I would order stool for C. difficile. Although there is no history of any recent antibiotic use. As Ranked By This Provider Problem List: 1. Depression 2. Suicidal ideation 3. HTN (hypertension) 4. Hyperlipemia Miscellaneous Miscellaneous Documentation Attending Case Discussed With: Denise Fontenot M.D. Primary Care Physician: Dr. Yadira Yousif. Patient sees these Specialists none Level of Patient Care: Maciej
--- NOTE | 2016-07-26 22:06 | NUR ---
PATIENT ALERT AND ORIENTED X3, CALM AND COOPERATIVE; PATIENT SOMEWHAT TIRED THIS EVENING; DENIES S/I THIS EVENING; MOOD CALM, PLEASANT; VITAL SIGNS STABLE; PULSE BEING MONITORED CAREFULY, NO FURTHER VALUES OVER 100; PATIENT MEDICALLY STABLE AT THIS TIME.
[2016-07-27] VITALS (9 sets, daily range): BP systolic 104–144; BP diastolic 68–86
--- NOTE | 2016-07-27 06:37 | NUR ---
PATIENT AWAKE X1 AT 0200, GIVEN PRN TRAZODONE AND NEURONTIN WITH GOOD EFFECT, RETURNED TO SLEEP.
--- NOTE | 2016-07-27 13:15 | NUR ---
PT IS PRESENT ON THE UNIT, CALM, PLEASANT AND COOPERATIVE, VSS, MOOD STABLE WITH FULL RANGE AFFECT, NO ISSUES OR COMPLAINTS REPORTED OR OBSERVED, AMBULATES SLOW AND STEADY WITH WALKER, ATTENDED GROUPS TODAY WHERE HE REPORTED + SLEEP/MOOD/ATTITUDE AND LOOKING FORWARD TO DISCHARGING EVENTUALLY, ACTIVE IN TREAMENT AND MEDICATION COMPLIANT.
--- NOTE | 2016-07-27 13:36 | CPS MD/APRN INITIAL ASSE PSYCH ---
Psychiatric Admission Cylinder Press Operator's Note Reviewed: Yes Patient Seen and Examined: Yes Identifying Information: This is a 65-year- old, , male with no formal psychiatric treatment or prior inpatient psychiatric hospitalizations; brought in by ambulance, on a PEER, after making a suicidal statement in the context of multiple psychosocial stressors while under the influence of alcohol. 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 I can't leave her there." History of Present Illness Onset of Illness: Approximately 1 year, per pt. Circumstances Leading to Admission: Patient reported feeling overwhelmed by multiple stressors, including his who had a stroke in March 2016 which left her paralyzed on right side with difficulty communicating; financial concerns, difficulty paying bills, being behind on his mortgage, broken down, owing money to the IRS resulting in them garnishing $500.00 from his paycheck weekly. Reported feeling greatly overwhelmed by the above resulting in him drinking liquor and leaving a VM for his dyltnk-br-wpv in where he make a comment about killing himself with a gun. He denied having access to guns. Denied endorsing SI at the time he stated this, and rather spoke out of frustration. Today, he denied SI, plans or intent. Reported protective factors of his two [id number], his and 2 cats. He became anxious and tearful during meeting, reporting "I need to be out of here by Monday, I need to get my ." Problem(s) Justifying Need for Admission: +SI Other HPI: Patient reported a history of Oxycontin (secondary to pain management s/p L hip replacement surgery) and alcohol abuse. Denied abusing alcohol to date. Currently on Suboxone. Patient signed a termination of voluntary on 07/26/16, which will on . Past Psychiatric History Past Diagnosis(es)- if any: Unspecified depressive disorder Alcohol use disorder, moderate Past Precipitating Factors- if any: Unknown - Include inpatient and outpatient treatment Treatment History: -No prior inpt psych hospitalizations -No formal outpatient psychiatric treatment -Currently being prescribed Wellbutrin and Cymbalta by PCP, Dr. Yousif. -Currently being prescribed Suboxone by Dr. Escobar in [place], [place]. History of Suicide Attempts or Gestures Denied. Substance Abuse History: Prior etoh and rx opiate abuse, now on suboxone. Reports drinking etoh 1-2 x weekly. Reported drinking variable quantities at a time. Denied hx withdrawal Szs or DTs. Reported abstinence from cigarettes since March 2016 when his had stroke. He denied the use of illicits. Allergies: Coded Allergies: NO KNOWN ALLERGIES (07/31/13) Home Med List: Norvasc Crestor Suboxone Toprol XL Cymbalta Wellbutrin - Include any medical condition(s) that may - impact the patient's recovery/remission Past Medical History: HTN HLD Past History Medical History Neurological: NONE EENT: NONE Cardiovascular: hypertension, hyperlipidemia Respiratory: NONE Gastrointestinal: NONE Hepatic: NONE Renal: NONE Musculoskeletal: fracture Endocrine: NONE Blood Disorders: NONE Cancer(s): NONE History of MRSA: No History of VRE: No History of CDIFF: No Isolation History: Standard Surgical History Surgical History: non-contributory Psychiatric Family/Social Hx Family History Psychiatric Illness: Denied a known family psychiatric history Substance Use: Denied a known family history of substance abuse Suicides: Denied Social History Living Situation: Lives in [place], [place] Significant Relationships (family/friends): and 2 [id number] Education: Associates degree 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 Healthly Behaviors Screening Tobacco Screening Tobacco Use from ED Docu: Quit >30 days ago - If tobacco counseling indicated - the following topics are required. - #1 Recognizing dangerous situations. - #2 Coping Skills. - #3 Basic information about quitting. Status of Tobacco Cessation Counseling: N/A B/C NO TOB USE Cessation Med Status: Pt Refused Cessation Meds Alcohol Screening - ETOH screen POS if BAL >=80 or Audit-C>= M4/F3 Audit-C Score from Diag Assess: 4 Blood Alcohol Level: Laboratory Tests 07/25 1424 Toxicology Serum Alcohol (<10 MG/DL) 219.0 Alcohol Use Screening Results: Pos per Audit C &/or BAL - If ETOH counseling indicated - the following topics are required. - #1 Express concern about the patient's - drinking at unhealthy levels, include informing - of national norms for moderate drinking: - men <= 14 drinks/week, max 4 drinks/occasion - women <= 7 drinks/week, max 3 drinks/occasion - #2 Providing feedback, including linking alcohol to - negative physical effects (liver injury, hypertension) - negative emotional effects (relationship problems and - depression) - negative occupational consequences (reduced work - performance) - #3 Advising the patient to abstain from alcohol or - to drink below national norms for moderate drinking - (as listed above). Status of ETOH Use Counseling: #1, #2 AND #3 Completed. Metabolic Screening - Screen if on a Neuroleptic Medication - Metabolic screening should include: - Blood Pressure, BMI, Glucose or Hgb A1c, & a - Lipid profile from within the past 365 days. Metabolic Screening ([X]) Not Applicable, patient not on a neuroleptic. OR () Patient on a neuroleptic(s) . Enter below results for Glucose or Hemoglobin A1C, and lipid panel if obtained during the last 365 days. BMI: 31.800 Blood Pressure: 104/68 Laboratory Results (If applicable): Exam and Plan Mental Status Examination Ambulation Status: Slow, unsteady gait, limps on ambulation. Uses walker. Appearance: 65y/o CM who appears stated age. Tall, obese, unshaven, schumacher hair, dressed in t- shirt and jeans. Attitude towards examiner: Polite, cooperative, anxious for discharge. Psychomotor activity: No psychomotor retardation or agitation. Behavior: Fair behavioral control. Quality of speech: Loud, normal in rate and tone. Affect: Full-range, non-labile Mood: anxious Suicidal Ideation: denied Homicidal Ideation: denied Hallucinations: denied AVH Paranoid/Delusional Material: none evident Difficulties with thought organization: none evident Insight: fair Judgment: fair Orientation: x 3 Cognition: grossly intact Memory Function: grossly intact Estimate of intellectual functioning: average Assets/Strengths Patient Identified Assets/Strengths: supportive family Impression/Plan Impression and Plan: Patient is a 65-year old , male with no formal psychiatric history, prior suicide attempts, or inpatient psychiatric admissions; presented by ambulance to ED on PEER s/p making a suicidal statement in a VM to his [id number]. He had been drinking at that time; denied current alcohol abuse. Currently overwhelmed by mutiple significant stressors, including financial, and caring for his who had a stroke in March 2016 which left her right side paralyzed with difficulty communicating. Patient adamanetly denied suicidal ideation at the time, reported he said something "stupid" due to feeling overwhelmed. It will be necessary to obtain collateral from family (i.e., his two ldrqpz-ma-scww who he claims are involved in his life). He is agreeable to increase Cymbalta from 60mg daily to 90mg daily for depression. Will discontinue Wellbutrin given his unclear history of alcohol use and a risk for Szs. Ideally, he would benefit from inpatient stabilization, in addition to outpatient referral to IOP to increase his support network while working through the above reported stressors. - Include all active medical diagnosis that require tx DSM 5 Diagnosis(es): Unspecified depressive disorder Alcohol use disorder, moderate - Initial Tx Plan for Active Psych & Medical Conditions Treatment Plan: 1. Monitor patient on unit for mood, safety, suicidal ideation, etoh withdrawal. 2. Continue CIWA monitoring per protocol -utilize prn ativan. 3. Discontinue Wellbutrin. Increase Cymbalta from 60mg to 90mg daily for pain/ depression. 4.Obtain collateral from family/schedule family meeting jo. 5. H&P per building trades instructor team. 6. Once symptoms are clinically stable, will refer to [facility] level of care. - Factors that would help patient function - in a less restrictive setting. Factors: Increased social supports Engagement in IOP tx Alleviation of SI Mood stabilization
--- NOTE | 2016-07-27 14:19 | SOCIAL WORKER TX PLAN PSYCH ---
Treatment Plan - Please Document: - Evidence that there is ongoing collaboration between - the patient and the interdisciplinary team, - including the patient's active participation and - responsibility for engaging in the treatment regimen, - and that the treatment plan is individualized and - relevant to the patient's conditions. - Treatment plan should reflect documentation indicating - that all active therapeutic efforts are included. Strengths/Capabilities: The patient does have stable employment and housing. He does have a desire to feel better. Physical Limitations (Interventions): None noted Patient Identified Trmt Goals: "to get out of here and back to work" Discharge Plan: outpatient/IOP Problem/Goals #1 Problem #1: suicidal ideation Goal (Short Term): Increase ability to manage moods/ depression Learn two ways to manage stress in a positive/productive manner Goal (Windmill Mechanic): Be free of suicidal thoughts; Develop 3 coping skills to deal with depression Identify 3 positive support systems to call in crisis Interventions: Learn ways to manage depressive symptoms accordingly and identify positive supports to manage life stressors and mood fluctuations. Modalities: Group and individual therapy Problem/Goals #2 Problem #2: alcohol dependence/abuse Goal (Short Term): Avoid people, places and situations where temptation might be overwhelming Refrain from alcohol use Identify 3 triggers for use Identify 3 sober supports Identify 3 coping skills Goal (Shelter): I will have family meeting on unit during my hospitalization I will attend all AA groups on unit I will Identify 3 coping skills for cravings to use I will set up aftercare for dual diagnosis program to address both mental health and substance abuse concerns Interventions: med management introduction to recovery taina daddiction services Modalities: group and individual therapy DSM5/PS Stressors/Medical Prob Diagnosis' (DSM 5, Stressors, Medical): F32.9 Unspecified depressive disorder F10.20 Alcohol Use disorder, moderate Medical: High Blood Pressure Stressors: Medical issues with and finances Current GAF: 28 Treatment Team - Responsibilities of members of the treatment team include: - Medication Management- MD or ASSISTANT CENTER DIRECTOR - Medication Administration and Monitoring- Nurse - Group Therapy- Occupational Therapist - 1:1 Therapy,Disch Planning,family involvement-Coffee Shop Aide
--- NOTE | 2016-07-27 14:19 | SOCIAL WORKER PROG NOTE PSYCH ---
Social Work Progress Note Progress Note Pt states he was overwhelmed since his whom is 56 years old had a stroke in March 2016, since then things have been stressful as he has made this adjustment of not having her healthy. At this point she is in [place], and needs to be picked up Monday as she spends the weekend home. He is anxious, tearful and overwhelmed. He is having trouble prioritizing life and is concerned over finances and going back to work. He signed release for his siter in law who is the person who called 911 and reported concern. Pt currentl denies si/hi/ah/vh, he did put in a 3 day paper. We explored ways to manage and cope with all the transitions and stressors. Pt minimizing etoh use, and is agreeable to and outpatient program.
--- NOTE | 2016-07-27 21:15 | NUR ---
PT IS VISIBLE ON UNIT, SOCIALIZING WITH PEERS AND WATCHING TV IN KITCHEN. VERY COOPERATIVE AND COMPLIANT WITH STAFF. ATTENDED WRAP UP MEETING THIS EVENING. NO COMPLAINTS OR SI REPORTED. PT HAS A STABLE MOOD AND FULL RANGE AFFECT.
[2016-07-28] VITALS (9 sets, daily range): BP systolic 122–145; BP diastolic 84–95
--- NOTE | 2016-07-28 05:58 | NUR ---
PT SLEPT. UP X 1 TO TOILET.
--- NOTE | 2016-07-28 12:54 | NUR ---
PT IS PLEASANT, CALM, COOPERATIVE AND COMPLAINT WITH TREATMENT, IS ATTENDING GROUPS AND HAS NO ISSUES OR COMPLAINTS TO REPORT OR OBSERVED, MOOD IS STABLE WITH FULL RANGE AFFECT, GOAL IN PLANNING MEETING WAS TO "MAKE PLANS FOR DISCHARGE" AND LOOKING FORWARD TO HOPEFULLY SEEING HIS THIS WEEKEND SHE IS SCHEDULED TO VISIT HOME FROM [place], IN FOCUS GROUP WAS ABLE TO PROVIDE PEERS WITH EXAMPLES OF HOW HE COPED AFTER LEAVING A TOXIC RELATIONSHIP.
--- NOTE | 2016-07-28 14:33 | SOCIAL WORKER PROG NOTE PSYCH ---
Social Work Progress Note Progress Note Bigg presents as anxious, but focused and goal oriented. Made a follow up appointment for ESTHER 08/02/16 at 12:45. He is agreeable to this plan. He called the auto repair shop to make an appointment to fix their car this is a high priority for him so he can pharmacy picking tech his . I spoke with Raysa his sister in law, "there is nothing wrong with him, he passed out and wouldn't pharmacy picking tech his phone after he made that statement, I was asleep, and wasn't thinking clearly". She also reports she will call his son and have him pharmacy picking tech his Mother from [place] and she states she will be around, "Im there all the time, Ill help him ". I informed her that he needs support and that he is referred to [facility], she stated "I agree, in order for him to take care of my sister he needs to take care of himself". 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 Discharged is planned for tomorrow 07/29/16.
--- NOTE | 2016-07-28 15:32 | CP SOUTH PROGRESS NOTE PSYCH ---
Psych (Inpt) Progress Note Progress Note Progress Note: I discussed this patient's progress to date, current mental status, treatment process in the context of the treatment plan, and discharge planning with staff/ team in the daily morning inpatient team meeting. I also met with the patient myself in individual session. SUBJECTIVE: "It was a stupid remark. I made it with no intent when I was drunk. " OBJECTIVE: Current Medications Sig/Mg Start time Last Medication Dose Route Stop Time Status Admin Acetaminophen 650 MG Q6P PRN 07/26 1000 AC PO Al Hydroxide/Mg 30 ML Q4-6 PRN PRN 07/26 1000 AC Hydroxide PO Amlodipine Besylate 10 MG DAILY 07/28 1000 AC 07/28 PO 0812 Amlodipine Besylate 5 MG DAILY 07/26 1000 DC 07/27 PO 07/28 0959 0818 Atorvastatin Calcium 40 MG 1700 07/26 1700 AC 07/27 PO 1638 Buprenorphine/ 1 TAB TID@0800,1400,2200 07/26 1400 AC 07/28 Naloxone SL 1318 Duloxetine HCl 90 MG DAILY 07/28 1000 AC 07/28 PO 0811 Duloxetine HCl 60 MG DAILY 07/26 1000 DC 07/27 PO 0818 Folic Acid 1 MG DAILY 07/26 1000 DC 07/28 PO 07/28 1001 0811 Gabapentin 300 MG Q4P PRN 07/26 1000 AC 07/27 PO 0202 Lorazepam 2 MG Q2P PRN 07/26 0945 AC PO Lorazepam 1 MG Q2P PRN 07/26 0945 AC 07/26 PO 1604 Magnesium Hydroxide 30 ML AT BEDTIME PRN 07/26 1000 AC PO Metoprolol Succinate 100 MG DAILY 07/26 1000 AC 07/28 PO 0812 Multivitamins 1 TAB DAILY 07/26 1000 AC 07/28 PO 0811 Thiamine HCl 100 MG DAILY 07/26 1000 DC 07/28 PO 07/28 1001 0811 Trazodone HCl 50 MG AT BEDTIME NEED.. 07/26 1000 AC 07/27 PO 0201 Vital Signs Date Time Temp Pulse Resp B/P B/P Pulse O2 O2 Flow FiO2 Mean Ox Delivery Rate 07/28 1447 83 137/84 07/28 1237 84 139/84 07/28 1225 84 139/84 07/28 0812 97.0 88 16 145/95 07/28 0812 97.0 88 16 145/95 07/28 0805 97.0 88 145/95 07/28 0752 97.0 88 145/95 07/28 2007 97.2 79 134/80 07/28 2003 97.2 79 134/80 07/27 1628 94 110/82 07/27 1611 94 110/82 ASSESSMENT: Today I am filling in for Maddi Hayes APRN. This is my first time meeting this patient. Patient presents with pressured speech, states that he is feeling stress because he would like to leave the hospital. His three-day paper is up tomorrow. States that he has numerous things that he needs to do tomorrow, including picking up his from rehabilitation, bringing his car in for repairs tomorrow morning, and getting back to his work. Depression:0/10; Anxiety:0/10 (with 10 the worst.) Denies suicidal ideation, homicidal ideation, auditory hallucinations, visual hallucinations, paranoid ideation. Patient states and also believes that he will not kill himself. States that he never had suicidal ideation "not at all." Reports that he sleeps well at night. His appetite is "great." Speech is well articulated, goal-directed, average in rate and volume. Somewhat pressured in tone. Alert and oriented 3. Cooperative. Logical. The patient understands the risks/benefits/side effects of the medication and is agreeable to continue taking them. PLAN: Anticipate discharge tomorrow morning. Will discuss with team if a discharge today is appropriate. Continue with current management as patient is improving. Continue to provide support and encouragement.
--- NOTE | 2016-07-28 21:30 | NUR ---
PT IS VISIBLE ON UNIT, SOCIAL WITH PEERS AND STAFF. PT ATTENDED AA BUT REFUSED WRAP UP MEETING THIS EVENING. PT RETREATED TO BED FAIRLY EARLY. NO COMPLAINTS OR SI REPORTED. PT HAS A STABLE MOOD AND FULL RANGE AFFECT.
[2016-07-29] VITALS (8 sets, daily range): BP systolic 136–150; BP diastolic 74–83
--- NOTE | 2016-07-29 05:30 | NUR ---
UP X 2 TO THE TOILET. PT WILL DC EARLY TODAY. PT SLEPT.
--- NOTE | 2016-07-29 07:56 | NUR ---
pt is scheduled for d/c to [facility] today. he reports and demonstrates improvement in his mood and ability to function. he denies any thoughts of suicide or self harm. he is compliant with his med regime and agrees to follow up with [facility] and has his intake appt for 5/. he is given education r/t managing his mood d/o and his alcohol abuse and on preventing suicide. pt is alert and vss and he exhibits no s/s withdrawal via ciwa
--- NOTE | 2016-07-29 08:05 | CP SOUTH PROGRESS NOTE PSYCH ---
Psych (Inpt) Progress Note Progress Note Include the following elements, when applicable: Involvement in the active treatment of the patient with behavioral observations of the patient and the patient's response to the treatment. Review of the ongoing treatment process in the context of the treatment plan. Indication of how multi-disciplinary staff members are carrying out the treatment plan. Plans for future interventions and recommendations for revision of the treatment plan. Liaison with other physicians/providers. Progress Note: I discussed this patient's progress to date, current mental status, treatment process in the context of the treatment plan, and discharge planning with staff/ team in the daily morning inpatient team meeting. I also met with the patient myself in individual session. OBJECTIVE: Current Medications Sig/Mg Start time Last Medication Dose Route Stop Time Status Admin Acetaminophen 650 MG Q6P PRN 07/26 1000 AC PO Al Hydroxide/Mg 30 ML Q4-6 PRN PRN 07/26 1000 AC Hydroxide PO Amlodipine Besylate 10 MG DAILY 07/28 1000 AC 07/28 PO 0812 Amlodipine Besylate 5 MG DAILY 07/26 1000 DC 07/27 PO 07/28 0959 0818 Atorvastatin Calcium 40 MG 1700 07/26 1700 AC 07/28 PO 1701 Buprenorphine/ 1 TAB TID@0800,1400,2200 07/26 1400 AC 07/28 Naloxone SL 2221 Duloxetine HCl 90 MG DAILY 07/28 1000 AC 07/28 PO 0811 Folic Acid 1 MG DAILY 07/26 1000 DC 07/28 PO 07/28 1001 0811 Gabapentin 300 MG Q4P PRN 07/26 1000 AC 07/27 PO 0202 Lorazepam 2 MG Q2P PRN 07/26 0945 AC PO Lorazepam 1 MG Q2P PRN 07/26 0945 AC 07/26 PO 1604 Magnesium Hydroxide 30 ML AT BEDTIME PRN 07/26 1000 AC PO Metoprolol Succinate 100 MG DAILY 07/26 1000 AC 07/28 PO 0812 Multivitamins 1 TAB DAILY 07/26 1000 AC 07/28 PO 0811 Thiamine HCl 100 MG DAILY 07/26 1000 DC 07/28 PO 07/28 1001 0811 Trazodone HCl 50 MG AT BEDTIME NEED.. 07/26 1000 AC 07/27 PO 0201 Vital Signs Date Time Temp Pulse Resp B/P B/P Pulse O2 O2 Flow FiO2 Mean Ox Delivery Rate 07/295 98.1 75 150/83 07/29 2011 96.3 83 133/93 07/29 2007 96.3 83 133/93 07/28 1609 87 122/84 07/28 1608 87 122/84 07/28 1447 83 137/84 07/28 1237 84 139/84 07/28 1225 84 139/84 07/28 0812 97.0 88 16 145/95 07/28 0812 97.0 88 16 145/95 ASSESSMENT: Chart, progress notes, VS, labs and medication list were reviewed. No new lab results today. BP mildly hypertensive, will continue to monitor (may be secondary to increase in Cymbalta). The patient's termination of voluntary to today. Discussed patient's progress to date with nursing staff who reported that the patient appeared more pressured and anxious today, irritable and speaking loudly. Of note, nursing staff overheard the patient talking about him holding a gun to his head. I was informed by Liseth Strange LCSW, that when she told the patient she would be calling his ovbxdps-jg-bfz and son to ask if firearms were present in his home, the patient became angry and loud. Met with the patient individually this morning who presented very focused on discharging today. Per yesterday's progress notes, the patient was tentatively scheduled for discharge today, however, upon review of his case, multiple stressors leading to present hospitalization, and current presentation, it was determined durin [facility] team meeting that the patient was not safe for discharge today. This remote mortgage underwriter, Liseth Strange LCSW, and Lois Dominguez, [facility] nursing center tutor met with the patient today. We informed the patient that he would not be discharged today given the team's concern of increased mood lability, increased stressors outside of the hospital, discussion of guns this morning, and minimization of symptoms. The patient became very upset from this news, became angry, tearful. He started blaming his vcbcwt-ig-rru, Raysa, for sending the police to his home after he made an remark about shooting himself, which led to present admission. With staff support he was able to calm. He was given the choice to request a probate hearing versus signing into the hospital voluntarily given the expiration of termination of voluntary today. He chose to sign into the hospital voluntarily. Pt presented A&Ox3. Eye contact was appropriate. Speech was pressured and loud at times. Mood was labile - irritable, tearful, angry. Affect was labile. No psychomotor retardation. Somewhat fidgety and restless. Thought process was linear. Thought content anxious. Cognition grossly intact. Denied passive and active suicidal ideation, plans and intent. Denied homicidal ideation, auditory and visual hallucinations. Denied paranoid thoughts. No evidence of delusions. Patient reported tolerating medications well and denied untoward medication effects. Informed patient that today, his speech appeared more pressured and his mood more labile since increasing Cymbalta to 90mg daily. Patient was agreeable to decreasing Cymbalta to 60mg daily. Will continue to monitor. A family meeting was later held with the patient, his step-son, his daughter-in- law, Liseth Strange LCSW and this remote mortgage underwriter. Patient's son reported he would be going to the patient's home later today and will search the home for any firearms. Please see Liseth's note for information regarding the family meeting. PLAN: 1. Continue monitoring on unit for safety, mood, suicidal ideation and ? hypomania. 2. Decrease Cymbalta from 90mg to 60mg daily for depression. 3. Consider adding low dose abilify for seroquel for mood stabilization, if patient is agreeable and mood remains labile. 4. Dispo planning per primary team. 5. Will follow-up with pt's son on Monday regarding whether there are firearms in the patient's home.
[2016-07-29] MEDS ORDERED: ONE DAILY MULT1 EAC2 PO (08:30)
[2016-07-29] MEDS ORDERED: CYMBALTA30 M1 PO (08:30)
--- NOTE | 2016-07-29 08:37 | DISCHARGE SUMMARY REPORT-PSYCH ---
Visit Information Visit Dates/Diagnosis' Admission Date: 07/26/16 Discharge Date: 08/02/16 Reason for Admission: Alcohol intoxication and suicidal ideation. Psy Discharge Primary Diag: Unspecified depressive disorder Psy Discharge Secondary Diag: Alcohol use disorder, moderate; Opiate use disorder (on Suboxone); R/O Bipolar disorder; HTN; HLD. Hospital Course Significant Lab Findings: Lab ALT 83 U/L H 07/25/16 1424 HDL Cholesterol 62 mg/dL H 08/01/16 0935 Hemoglobin A1c 5.9 % H 07/25/16 1424 LDL Cholesterol, Calc 51 mg/dL L 08/01/16 0935 Hct 40.4 % L 08/01/16 0935 Hgb 13.6 G/DL L 08/01/16 0935 MCH 31.1 PG H 08/01/16 0935 RBC 4.39 /CUMM L 08/01/16 0935 RDW 14.7 % H 08/01/16 0935 Serum Alcohol 219.0 MG/DL 07/25/16 1424 07/27/16 EKG: Sinus rhythm with a rate of 72. Atrial premature complex. Left ventricular hypertrophy. Borderline T abnormalities, inferior leads. MT: 172. QRSD: 98. QT: 424. QTc: 465. P: 49. QRS: -19. T: -2. Course Complications: None. Consultations: The patient was seen for admission history and physical by robotics systems engineer Dr. Denise Fontenot. Please see her note for additional information. Allergies: Coded Allergies: NO KNOWN ALLERGIES (07/31/13) Hospital Course/TX Response: The patient was monitored on the unit for safety, mood, suicidal ideation and alcohol withdrawal. The patient did not score on CIWA. He participated in multimodal treatments on the unit. Wellbutrin XL 150mg was discontinued due to the patient's history of frequent alcohol use and an increased risk of seizures. Cymbalta 60mg was increased to 90mg daily for depression, however nursing staff noted that following this increase the patient became more irritable. Cymbalta was decreased back to 60mg daily for depression and no further irritability was noted. The patient was not agreeable to further medication changes despite this proposal manager writer's recommendation to add low-dose abilify or seroquel for mood stabilization. The patient declined recommendations for unclear reasons. Suboxone 8/2mg was continued three times daily for opiate maintenance. Norvasc 10mg daily and Toprol XL 100mg daily were continued for HTN. Lipitor was substituted for Crestor for cholesterol management. He reported tolerating all medications well and denied untoward medication effects. During the hospital course, the patient's mood and affect improved. He consistently denied suicidal ideation, plans or intent throughout the hospitalization. A family meeting was held with the patient, his step-son and iuiqtkjo-op-qjb, this proposal manager writer and Liseth Strange LCSW. The patient's treatment progress, medication regimen, level of safety and discharge planning were reviewed and discussed. The patient's son and jnzogdxk-lp-tve expressed their only concern was the patient's drinking pattern and his limited ability to cope in healthy ways. They did not express any acute safety concerns over his discharge. Liseth Strange LCSW held a second meeting via phone conference with the patient, herself and the patient's egwveo-tp-vrm, Raysa, who stated her rpmcaqh-ku-fxc, Romulo, and the patient's step-son, Miquel, searched the patient's home and safe for guns. She confirmed there were no guns in the patient's home or safe. The patient and all of his family members were in favor of his discharge and follow-up plan to [facility] program for continued psychiatric support. On the date of discharge, 08/02/16, the patient was alert and oriented x 3. Speech was normal in rate, tone and volume. Mood was "good." Affect was full-range, non -labile. He had no complaints. He reported depression of 1/10 (10 being the worst) and anxiety of 2/10 (10 being the worst). He denied feeling hopeless, helpless, worthless, and guilty. When asked if he endorsed suicidal thoughts, he reported "I never had them." He denied passive and active suicidal ideation, plans and intent. Gave protective factors of his , step-son, and grandson. He stated and also believed he will not harm himself or others. He denied homicidal ideation, auditory and visual hallucinations. Denied paranoid thoughts. No evidence of delusions. He reported his sleep and appetite were good. He appeared agreeable to follow-up with [facility] level of care post-discharge and expressed he felt it would be good support for him while working through stressors. He reported tolerating medications well and denied untoward medication effects. He reported feeling safe and ready for discharge. Discharge HBIPS - Tobacco Use Treatment Offered Post DC Medications Offered: NA-No Tob Use >30 days Post DC Tobacco Treatment Plan: NA-No Tobacco use >30days - EtOH/Drug Use D/O Treatment Offered Post DC Medications Offered: Ref Med EtOH/Drug Use D/O Post DC EtOH/SubAbuse TX Plan: [facility] SubAbuse/Dual IOP Program Appt Date: 08/02/16 Program Appt Time: 1245 Metabolic Screening - Screen if on a Neuroleptic Medication - Metabolic screening should include: - Blood Pressure, BMI, Glucose or Hgb A1c, & a - Lipid profile from within the past 365 days. Metabolic Screening ([X]) Not Applicable, patient not on a neuroleptic. OR () Patient on a neuroleptic(s) . Enter below results for Glucose or Hemoglobin A1C, and lipid panel if obtained during the last 365 days. BMI: 31.800 Blood Pressure: 150/97 Laboratory Results (If applicable): Discharge Instructions General Discharge Information Discharge Medications: Discharge Medications- (Dose, route, freq, indication): Take these Medications: Multivitamin (One Dose: ORAL, DAILY for vitamin Qty: 14 Printed Daily Multivitamin) 1 Tablet support Refills: 0 1 EACH TABLET Take 1 tab by mouth daily. Last Taken:08/02/16 Time:0800 Duloxetine HCl Dose: ORAL, Every Morning for Qty: 14 Printed (Cymbalta) 60 MG 1 Capsule depression Refills: 0 CAPSULE.DR Take 1 cap by mouth every morning. Last Taken:08/02/16 Time:0800 CONTINUE taking these Home Medications: Rosuvastatin Calcium Dose: ORAL, DAILY for HIGH (Crestor) 20 MG TABLET 1 Tablet CHOLESTROL Metoprolol Succinate Dose: ORAL, DAILY for BLOOD (Metoprolol Succinate) 100 Milligram PRESSURE 100 MG TAB.ER.24H Felodipine (Felodipine Dose: ORAL, DAILY for BP ER) 10 MG TAB.ER.24H 1 Tablet Buprenorphine HCl/ Dose: ORAL, 3 TIMES DAILY Naloxone HCl (Suboxone 8 1 Film BEFORE MEALS for MENTAL MG-2 MG Sl Film) 8 MG-2 HEALTH MG FILM Last Taken:08/02/16 Time:0800 Ergocalciferol (Vitamin Dose: ORAL, DAILY for VITAMIN D2) (Vitamin D2) 50,000 1 Capsule SUPPORT UNIT CAPSULE STOP taking these home medications: Wellbutrin XL 150mg po QAM for depression. Multiple Neuroleptics: ([X]) Not Applicable OR Document below three failed attempts at monotherapy, or a plan to taper to monotherapy, or augmentation of Clozapine. () Patient's Diet: Regular. Patient's Activity: No restrictions. DC Disposition: Patient to return to home and self care. Recommendations: The patient was advised to please take his medications as prescribed. He was advised to abstain from alcohol, attend daily AA meetings and obtain a sponsor for support in sobriety. He was advised to follow-up with scheduled IOP intake and programming. He was advised that in the event of an emergency to call 911/go to nearest emergency department. Patient verbalized understanding of all instructions. Referred To: Post Discharge Referrals Provider Referral Service Date: 08/02/16 Referred To: [[facility]] Notes: [facility] [address] [place] [address]#[phone] INTAKE ON ., 08/02/16 AT 12:45PM Copies To: [facility]
--- NOTE | 2016-07-29 09:01 | SOCIAL WORKER PROG NOTE PSYCH ---
Social Work Progress Note Progress Note Met with Bigg this morning, he seemed to be very anxious, labile (tearful and irritable). He expressedhow he wanted to go home to get his from the rehab and fix his car. Discussed Bigg in team meeting with Maddi Hayes APRN and Dr. Martínez and staff. Concern was around Alina' behavior on the unit - recounting how he drank and put a gun to his head - speaking with other patients on the unit, how they attempted to kill themselves. Bigg's speech was noted to be pressured, and mood lability. I spoke with his fswubvfk-bb-nnl, Kelly (his son , Anderson's ) and asked if they could search Bigg's home for any guns and remove them. Also, called Portia's znjvhsg-sk-ttf, Constantino Tadeo, left a voicemail asking to call back regarding Bigg. Bigg stated he sold all his guns, explained to Bigg this was important to secure his safety. Bigg was very agitated about this initially. Bigg signed in voluntarily today. During team meeting it was determined Bigg needed to continue his inpatient stay to monitor his mood and adjust medications. His son, Anderson and suyatcjn-ek-php, Kelly came in for a meeting , or and discussed their concerns. His son stated he has been concerned about Bigg's drinking which has excalated over the past 2yrs. They reported he was drinking 2-5 "Fireball" nips daily. They stated he usually did this in the evening, and they saw a mood change whereas he was more irritabel and angry. Bigg's had a stroke in March (on ), and she has difficulty speaking. Bigg is very concerned about her, and overwhelmed with concern about his as well. Bigg and his son reiterated how he was on Opiates in the past for hip pain, then was abruptly taken off the medication, then his drinking escalated. Bigg denied any family history of MH/SA. Monday08/01/16 plan to call Bigg's ysmwot-nf-qaq, Raysa Tsai, and his son, Anderson to make sure there are no guns in the home.
--- NOTE | 2016-07-29 10:46 | NUR ---
PT WILL NOT BE DISCHARGED TODAY AFTER HE WAS OVERHEARD TALKING TO A PEER IN THE COMMUNITY ABOUT DRINKING SHOTS OF LIQUOR AND HOLDING A GUN TO HIS HEAD. PT WAS REMINDED OF THE INAPPROPRIATENESS OF HIS CONVERSATION IN THE COMMUNITY BUT THE CONCERN FOR THE TEAM WAS IF PT WAS READY TO GO HOME TODAY. PT STATED HE WAS REFERRING TO EVENTS FOOD SERVICES COORDINATOR NOT CURRENT THINKING AND HE DENIES SI AT THIS TIME. HE WAS TEARFUL AND ANXIOUS WHEN TOLD HE WOULD NOT GO HOME TODAY AND HE TOOK NEURONTIN 300MG. WILL MONITOR EFFECT
--- NOTE | 2016-07-29 21:55 | NUR ---
PT IS CALM, COOPERATIVE WITH STAFF AND PEERS, AND COMPLIANT WITH UNIT RULES. PT IS OFTEN IN [place], INTERACTING WELL WITH OTHERS. MOOD IS STABLE, AFFECT IS EUTHYMIC TO FULL RANGE, COMMUNICATION IS ORGANIZED AND APPEARS NORMAL IN ALL RESPECTS, AND APPETITE IS NORMAL. PT DENIES SI AT THIS TIME.
[2016-07-30] VITALS (8 sets, daily range): BP systolic 130–153; BP diastolic 77–83
--- NOTE | 2016-07-30 06:36 | NUR ---
PATIENT SLEPT ALL NIGHT.
--- NOTE | 2016-07-30 13:22 | CP SOUTH PROGRESS NOTE PSYCH ---
Psych (Inpt) Progress Note Progress Note Include the following elements, when applicable: Involvement in the active treatment of the patient with behavioral observations of the patient and the patient's response to the treatment. Review of the ongoing treatment process in the context of the treatment plan. Indication of how multi-disciplinary staff members are carrying out the treatment plan. Plans for future interventions and recommendations for revision of the treatment plan. Liaison with other physicians/providers. Progress Note: Pt notes that slept well. Notes mood is "OK, it is what it is." Wanted to be discharged Monday and upset that he was not. Denies SI ro HI. Feels that statements to family were "so stupid." Became tearful. Very concerned about money and work. Wants to see . Current Medications Sig/Mg Start time Last Medication Dose Route Stop Time Status Admin Acetaminophen 650 MG Q6P PRN 07/26 1000 AC PO Al Hydroxide/Mg 30 ML Q4-6 PRN PRN 07/26 1000 AC Hydroxide PO Amlodipine Besylate 10 MG DAILY 07/28 1000 AC 07/30 PO 0816 Atorvastatin Calcium 40 MG 1700 07/26 1700 AC 07/29 PO 1645 Buprenorphine/ 1 TAB TID@0800,1400,2200 07/26 1400 AC 07/30 Naloxone SL 0816 Duloxetine HCl 60 MG DAILY 07/30 1000 AC 07/30 PO 0816 Gabapentin 300 MG Q4P PRN 07/26 1000 AC 07/29 PO 1028 Lorazepam 2 MG Q2P PRN 07/26 0945 AC PO Lorazepam 1 MG Q2P PRN 07/26 0945 AC 07/26 PO 1604 Magnesium Hydroxide 30 ML AT BEDTIME PRN 07/26 1000 AC PO Metoprolol Succinate 100 MG DAILY 07/26 1000 AC 07/30 PO 0816 Multivitamins 1 TAB DAILY 07/26 1000 AC 07/30 PO 0816 Trazodone HCl 50 MG AT BEDTIME NEED.. 07/26 1000 AC 07/29 PO 2258 Vital Signs Date Time Temp Pulse Resp B/P B/P Pulse O2 O2 Flow FiO2 Mean Ox Delivery Rate 07/30 1237 79 139/78 07/30 1236 79 139/78 07/30 0816 87 153/83 07/30 0816 87 153/83 07/30 0810 97.5 87 153/83 07/30 0807 97.5 87 153/83 07/29 2010 97.3 82 16 136/81 07/29 2004 97.3 82 136/81 07/29 1609 92 142/78 07/29 1608 92 142 MSE Appears as stated age. Cooperative behavior, good, appropriate eye contact. Nl speech rate and prosody. No psychomotor retardation or agitation. Mood fine Affect irritable, depressed, constricted, appropriate, liable at times. Linear and goal directed thought process. Denies SI or HI. Does not appear to be responding to internal stimuli. Denies AVHs, paranoia, or delusions. I/J: limited A/P: Pt with MDD now with improving mood but continued difficulty coping with psychosocial stressors. - Continue current meds - Repeat CBC, Fe panel, and b12 - Encourage groups
--- NOTE | 2016-07-30 14:16 | NUR ---
PT VISIBLE IN THE [place] TODAY. HIS GOAL WAS TO STAY POSITIVE. IN THE [place] PT HAS BEEN GOING TO GROUPS, AND INTERACTS POSITIVELY WITH HIS PEERS. HE HAS BEEN PLEASANT, AND COOPERATIVE. HE DENIES THOUGHTS OF HURTING HIMSELF WHEN ASKED.
--- NOTE | 2016-07-30 18:32 | NUR ---
PT IS OUT IN THE COMMUNITY INTERACTING WELL WITH STAFF AND PEERS. PT IS COMPLIANT AND COOPEARTIVE WITH UNIT RULES. PT MOOD IS STABLE WITH A EUYTHIC AFFECT. PT COMMUNICATION IS CLEAR. PT USES WALKER TO AMBULATE AROUND UNIT. PT DENIES SI THOUGHTS.
[2016-07-31] VITALS (8 sets, daily range): BP systolic 119–140; BP diastolic 72–89
--- NOTE | 2016-07-31 05:14 | NUR ---
PATIENT SLEPT ALL NIGHT.
--- NOTE | 2016-07-31 11:23 | CP SOUTH PROGRESS NOTE PSYCH ---
Psych (Inpt) Progress Note Progress Note Include the following elements, when applicable: Involvement in the active treatment of the patient with behavioral observations of the patient and the patient's response to the treatment. Review of the ongoing treatment process in the context of the treatment plan. Indication of how multi-disciplinary staff members are carrying out the treatment plan. Plans for future interventions and recommendations for revision of the treatment plan. Liaison with other physicians/providers. Progress Note: Pt notes that slept "real good." Notes "OK" mood. He is looking forward to tomorrow as hopeful to be discharged. Current Medications Sig/Mg Start time Last Medication Dose Route Stop Time Status Admin Acetaminophen 650 MG Q6P PRN 07/26 1000 AC PO Al Hydroxide/Mg 30 ML Q4-6 PRN PRN 07/26 1000 AC Hydroxide PO Amlodipine Besylate 10 MG DAILY 07/28 1000 AC 07/31 PO 0803 Atorvastatin Calcium 40 MG 1700 07/26 1700 AC 07/30 PO 1711 Buprenorphine/ 1 TAB TID@0800,1400,2200 07/26 1400 AC 07/31 Naloxone SL 0803 Duloxetine HCl 60 MG DAILY 07/30 1000 AC 07/31 PO 0803 Gabapentin 300 MG Q4P PRN 07/26 1000 AC 07/29 PO 1028 Lorazepam 2 MG Q2P PRN 07/26 0945 AC PO Lorazepam 1 MG Q2P PRN 07/26 0945 AC 07/26 PO 1604 Magnesium Hydroxide 30 ML AT BEDTIME PRN 07/26 1000 AC PO Metoprolol Succinate 100 MG DAILY 07/26 1000 AC 07/31 PO 0803 Multivitamins 1 TAB DAILY 07/26 1000 AC 07/31 PO 0803 Trazodone HCl 50 MG AT BEDTIME NEED.. 07/26 1000 AC 07/30 PO 2120 Vital Signs Date Time Temp Pulse Resp B/P B/P Pulse O2 O2 Flow FiO2 Mean Ox Delivery Rate 07/31 08 74 137/89 07/31 0803 74 137/89 07/31 08 96.6 74 13707/31 0753 96.6 74 137/89 07/30 2010 97.7 73 141/79 07/30 2004 97.7 73 141/79 07/30 1557 77 130/77 07/30 1537 77 130/77 07/30 1237 79 139/78 07/30 1236 79 139/78 MSE Appears as stated age. Cooperative behavior, good, appropriate eye contact. Nl speech rate and prosody. No psychomotor retardation or agitation. Mood ok just bored Affect irritable, depressed, constricted, appropriate, liable at times. Linear and goal directed thought process. Denies SI or HI. Does not appear to be responding to internal stimuli. Denies AVHs, paranoia, or delusions. I/J: limited A/P: Pt with MDD now with improving mood but continued difficulty coping with psychosocial stressors. - Continue current meds - Repeat CBC, Fe panel, and b12 - Encourage groups
--- NOTE | 2016-07-31 13:34 | NUR ---
PT IS OUT IN THE COMMUNITY INTERACTING WELL WITH STAFF AND PEERS. PT IS COMPLIANT AND COOPERATIVE WITH UNIT RULES. PT IS ATTENDING GROUPS AND IS ACTIVE IN THEM. PT MOOD IS STABLE WITH A FLAT AFFECT. PT IS A LITTLE WITHDRAWN FROM PEERS BUT WHEN, ENGAGED, DOES WELL. PT DENIES SI THOUGHTS.
--- NOTE | 2016-07-31 22:50 | NUR ---
PT ALERT AND ORIENTED X 3. USES WALKER TO MOBILIZE SELF. MOOD IS APPROPRIATE AND HE IS PLEASANT AND COOPERATIVE. ATTENDS AND PARTICIPATES IN GROUP AND DEMONSTRATES POSITIVE INSIGHT. INTERACTION WITH BOTH STAFF AND PEERS IS POSITIVE.
[2016-08-01] VITALS (7 sets, daily range): BP systolic 130–145; BP diastolic 69–95
--- NOTE | 2016-08-01 06:15 | NUR ---
PATIENT UP TO BATHROOM TWICE, OTHERWISE APPEARED TO SLEEP MOST OF THE NIGHT.
[2016-08-01 10:21] LABS: ABSOLUTE BASOPHIL COUNT 0.1 /CUMM (0.0-0.2); ABSOLUTE EOSINOPHIL COUNT 0.4 /CUMM (0.0-0.7); ABSOLUTE GRANULOCYTE CT 2.6 /CUMM (1.4-6.5); ABSOLUTE LYMPH COUNT 2.2 /CUMM (1.2-3.4); ABSOLUTE MONOCYTE COUNT 0.5 /CUMM (0.10-0.60); EOSINOPHIL % 6.3 % (0-5); GRANULOCYTE % 45.4 % (42.2-75.2); HEMATOCRIT 40.4 % (42-52); MEAN CORPUSCULAR HGB 31.1 PG (27.0-31.0); MEAN CORPUSCULAR HGB CONC 33.8 G/DL (33.0-37.0); MEAN CORPUSCULAR VOLUME 92.1 FL (80.0-94.0); MEAN PLATELET VOLUME 8.6 FL (7.4-10.4); PLATELET COUNT 228 /CUMM (130-400); RBC DISTRIBUTION WIDTH 14.7 % (11.5-14.5); RED BLOOD CELL CT 4.39 /CUMM (4.70-6.10); WHITE BLOOD CELL COUNT 5.8 /CUMM (4.8-10.8)
--- NOTE | 2016-08-01 13:54 | NUR ---
PT IS COMPLIANT AND COOPERATIVE. MOOD IS STABLE WITH A FULL RANGE OF AFFECT. PT DENIES SI AT THIS TIME, NO COMPLAINTS OFFERED. PT IS AMBULATING WELL WITH ASSISTANCE FROM WALKER. PT IS PRESENT IN THE COMMUNITY AND INTERACTING WELL WITH PEERS AND STAFF. PT IS ATTENDING GROUPS. VITALS ARE STABLE, APPETITE IS GOOD.
--- NOTE | 2016-08-01 15:18 | SOCIAL WORKER PROG NOTE PSYCH ---
Social Work Progress Note Progress Note Discussed Bigg with Maddi Hayes APRN update on his progress. Phoned Bigg's aysiip-uz-sgl, Raysa Tsai, Ph#[phone] and asked if she could participate in a family meeting prior to Bigg's discharge. Also, stated need confirmation that all guns are removed from Bigg's home. She stated she knows that Bigg had 3 guns , sold 2 guns and is not sure where the other gun is. Yana Hayes APRN and I did discuss the checking Bigg's home for guns with his step-son, Adilson and his , Kelly on 07/29/16, they were going to check Bigg's home. Phoned Adilson (Alina' step- son) today, ; and spoke with Adilson, who stated he hadn't checked Bigg's home yet, and will tonight. He asked about the combination to Bigg's safe - to check that as well. Bigg willingly gave Adilson the combination. Plan to have a phone conference with Bigg and his jypxdd-ab-vuv, Raysa Vazquez- [phone] over the phone prior to Bigg's discharge tomorrow AM (as she lives locally and is a support to Bigg). Bigg is scheduled to discharge 08/02/16. He has an intake at [facility] at 12:45pm. He agreed to attend the [facility] program and work with his FMLA through [employer]. Phoned Eric today to request FMLA forms (per Bigg's request, [employer] on file) - they were closed, will call in the morning. VIRGILIO Hayes and I met with Bigg, he appeared less frustated an aggitated when we met. He stated he wants to go home. He denied having any SI/HI, no psychosis. Provided updated concurrent review with [facility] Ph#[phone], ext. [phone], requested call back with AUTH for additional day.
--- NOTE | 2016-08-01 16:24 | CP SOUTH PROGRESS NOTE PSYCH ---
Psych (Inpt) Progress Note Progress Note Include the following elements, when applicable: Involvement in the active treatment of the patient with behavioral observations of the patient and the patient's response to the treatment. Review of the ongoing treatment process in the context of the treatment plan. Indication of how multi-disciplinary staff members are carrying out the treatment plan. Plans for future interventions and recommendations for revision of the treatment plan. Liaison with other physicians/providers. Progress Note: I discussed this patient's progress to date, current mental status, treatment process in the context of the treatment plan, and discharge planning with staff/ team in the daily morning inpatient team meeting. I also met with the patient myself in individual session. OBJECTIVE: Vital Signs Date Time Temp Pulse Resp B/P B/P Pulse O2 O2 Flow FiO2 Mean Ox Delivery Rate 08/01 1615 91 145/76 08/01 1612 91 145/76 08/01 1258 94 132/78 08/01 1251 65 132/78 08/01 0902 97.4 68 16 138/95 08/01 0901 97.4 68 16 138/95 08/01 0751 97.4 68 138/95 01 0750 97.4 68 138/95 07/31 2014 98.4 74 140/87 07/31 2009 98.4 74 140/87 ASSESSMENT: Chart, progress notes, labs, VS, CIWA and medication list were reviewed. Vital signs within normal limits. Not scored on CIWA in last 24 hours (will discontinue). Met with patient his afternoon. Presented alert and oriented x 3. Speech was average in rate, tone and volume, non-pressured. Mood "fine." Affect constricted , labile at times, briefly tearful with mention of his . Reported receiving a visit from his this weekend which was "the highlight of my weekend!" He continued to report that the reason for his admission was the result of "saying something stupid." He consistently denied that reported SI was with intent, and that statement was directly related to being intoxicated. Depression: 2/10 (10 being the worst). Anxiety: 0/10 (10 being the worst). Reported sleep and appetite were good. Denied passive/active SI, plans or intent. Gave protective factors of his , step-son, and grandson. Denied HI, AH, VH, PI. Thought process linear, goal-directed. Future oriented to return home and be involved with . Appeared more open to attending IOP post-dsicharge for continued psychiatric support as he continues to show difficulty coping with stressors. Offered patient a trial of low dose Abilify for mood stabilization. Patient declined and reported "I don't want to be on any other medications." He reported tolerating current medications well and denied untoward medication effects. PLAN: 1. Continue monitoring on unit for safety, mood and suicidal ideation. 2. Continue current medications. 3. Family meeting tomorrow morning with [id number]. 4. Discharge tomorrow upon confirmation of there being no guns in the home. 5. IOP intake scheduled tomorrow at 12:45PM. 6. Discontinue CIWA. Date Time Temp Pulse Resp B/P B/P Pulse O2 O2 Flow FiO2 Mean Ox Delivery Rate 08/01 1615 91 145/76 08/01 1612 91 145/76 08/01 1258 94 132/78 08/01 1251 65 132/78 08/01 0902 97.4 68 16 138/95 05/ 0901 97.4 68 16 138/95 05/01 0751 97.4 68 138/95 05/01 0750 97.4 68 138/95 07/31 2014 98.4 74 140/87 07/31 2009 98.4 74 140/87 ASSESSMENT: Chart, progress notes, labs, VS, CIWA and medication list were reviewed. Vital signs within normal limits. Not scored on CIWA in last 24 hours (will discontinue). Met with patient his afternoon. Presented alert and oriented x 3. Speech was average in rate, tone and volume, non-pressured. Mood "fine." Affect constricted , labile at times, tearful with mention of his . Reported receiving a visit from his this weekend which was "the highlight of my weekend!" He continued to report that the reason for his admission was the result of "saying something stupid." He consistently denied that SI was with intent, and that is was directly related to being intoxicated. Depression: 2/10 (10 being the worst). Anxiety: 0/10 (10 being the worst). Reported sleep and appetite were good. Denied passive/active SI, plans or intent. Gave protective factors of his , step-son, and grandson. Denied HI, AH, VH, PI. Thought process linear, goal- directed. Future oriented to return home and see his . Appeared more open to attending [facility] post-dsicharge for continued psychiatric support as he continues to show difficulty coping with stressors. Offered patient a trial of low dose Abilify for mood stabilization. Patient declined and reported "I don't want to be on any other medications." He reported tolerating medications well and denied untoward medication effects. PLAN: 1. Continue monitoring on unit for safety, mood and suicidal ideation. 2. Continue current medications. 3. Family meeting tomorrow morning with nalnva-xl-adl. 4. Discharge tomorrow upon confirmation of there being no guns in the home. 5. IOP intake scheduled tomorrow at 12:45PM. 6. Discontinue CIWA.
--- NOTE | 2016-08-01 18:31 | SOCIAL WORKER PROG NOTE PSYCH ---
Social Work Progress Note Progress Note Received call from Raysa Pineda, [id number] , she stated her blhapkz-ac-imh, Romuol and Bigg's step-son searched Bigg's home and checked the safe and did NOT find any guns. Raysa stated she is confident that Bigg actually did sell his (3) guns, and there are no guns in the home. Plan for phone conference meeting tomorrow, 08/02 at 12noon.
--- NOTE | 2016-08-01 22:42 | NUR ---
PT IS CALM, COOPERATIVE WITH STAFF AND PEERS, AND COMPLIANT WITH UNIT RULES. PT IS OFTEN IN [place], AND INTERACTING WELL WITH OTHERS. MOOD IS STABLE, AFFECT IS EUTHYMIC TO FULL RNAGE, COMMUNICATION IS ORGANIZED AND APPEARS NORMAL IN ALL RESPECTS, AND APPETITE IS NORMAL. PT DENIES SI AT THIS TIME.
--- NOTE | 2016-08-02 05:44 | NUR ---
PATIENT WAS UP TO BATHROOM TWICE, OTHERWISE APPEARED TO SLEEP ALL NIGHT.
[2016-08-02 07:50] VITALS: BP 146/93
--- NOTE | 2016-08-02 08:07 | NUR ---
PT IS SCHEDULED FOR D/C TODAY TO [facility]. FAMILY HAS VERIFIED THAT HIS HOME IS SAFE TO RETURN. HE AGREES TO FOLLOW UP WITH IOP AND HAS AN INTAKE APPT. HE REPORTS HIS MOOD IS IMPROVED AND HE HAS NO S/S WITHDRAWAL. HE DENIES ANY THOUGHTS OF SUICIDE OR SELF HARM AND HIS CONVERSATION IS FUTURE ORIENTED. PT IS GIVEN EDUCATION R/T MANAGING HIS MOOD D/O AND ON SUIICDE PREVENTION
[2016-08-02] MEDS ORDERED: CYMBALTA60 M1 PO (08:35)
--- NOTE | 2016-08-02 10:57 | CP SOUTH PROGRESS NOTE PSYCH ---
Psych (Inpt) Progress Note Progress Note Include the following elements, when applicable: Involvement in the active treatment of the patient with behavioral observations of the patient and the patient's response to the treatment. Review of the ongoing treatment process in the context of the treatment plan. Indication of how multi-disciplinary staff members are carrying out the treatment plan. Plans for future interventions and recommendations for revision of the treatment plan. Liaison with other physicians/providers. Progress Note: I discussed this patient's progress to date, current mental status, treatment process in the context of the treatment plan, and discharge planning with staff/ team in the daily morning inpatient team meeting. I also met with the patient myself in individual session. OBJECTIVE: Current Medications Sig/Mg Start time Last Medication Dose Route Stop Time Status Admin Acetaminophen 650 MG Q6P PRN 07/26 1000 AC PO Al Hydroxide/Mg 30 ML Q4-6 PRN PRN 07/26 1000 AC Hydroxide PO Amlodipine Besylate 10 MG DAILY 07/28 1000 AC 08/02 PO 0806 Atorvastatin Calcium 40 MG 1700 07/26 1700 AC 08/01 PO 1751 Buprenorphine/ 1 TAB TID@0800,1400,2200 07/26 1400 AC 08/02 Naloxone SL 0807 Duloxetine HCl 60 MG DAILY 07/30 1000 AC 08/02 PO 0805 Gabapentin 300 MG Q4P PRN 07/26 1000 AC 08/01 PO 2135 Lorazepam 2 MG Q2P PRN 07/26 0945 DC PO Lorazepam 1 MG Q2P PRN 07/26 0945 DC 07/26 PO 1604 Magnesium Hydroxide 30 ML AT BEDTIME PRN 07/26 1000 AC PO Metoprolol Succinate 100 MG DAILY 07/26 1000 AC 08/02 PO 0806 Multivitamins 1 TAB DAILY 07/26 1000 AC 08/02 PO 0806 Trazodone HCl 50 MG .STK-MED ONE 08/01 2307 DC PO 08/01 2308 Trazodone HCl 50 MG AT BEDTIME NEED.. 07/26 1000 AC 08/01 PO 2314 Vital Signs Date Time Temp Pulse Resp B/P B/P Pulse O2 O2 Flow FiO2 Mean Ox Delivery Rate 08/02 805 96.8 74 16 146/93 05/ 0806 96.8 74 16 146/93 05/02 0750 96.8 74 146/93 08/01 1953 97.7 77 16 130/69 05/ 1615 91 145/76 08/01 1612 91 145/76 08/01 1258 94 132/78 08/01 1251 65 132/78 ASSESSMENT: Chart, progress notes, labs, VS and medication list were reviewed. Per Liseth Strange LCSW, the patient's ynovqv-im-mye verified that there were NO guns in the patient's home. Both the patient's vflbuzr-ag-xwx, Romulo, and patient's step-son, , searched the patient's home and safe and there were no evidence of firearms. Met with patient this morning on the date of discharge. He was alert and oriented x 3. Speech was normal in rate, tone and volume. Mood was "good." Affect was full-range, non-labile. He had no complaints. He reported depression of 1/10 (10 being the worst) and anxiety of 2/10 (10 being the worst). He denied feeling hopeless, helpless, worthless, and guilty. When asked if he endorsed suicidal thoughts, he reported "I never had them." He denied passive and active suicidal ideation, plans and intent. Gave protective factors of his , step- son, and grandson. He stated and also believed he will not harm himself or others. He denied homicidal ideation, auditory and visual hallucinations. Denied paranoid thoughts. No evidence of delusions. He reported his sleep and appetite were good. He appeared agreeable to follow-up with [facility] level of care post- discharge and expressed he felt it would be good support for him while working through stressors. He reported tolerating medications well and denied untoward medication effects. He reported feeling safe and ready for discharge. PLAN: 1. Discharge today to home and self-care. 2. Discharge prescription printed, reviewed with patient and given to patient on discharge. 3. F/u at [facility] today at 12:45PM. 4. Abstain from all substances. Patient was strongly advised to attend daily AA meetings and to obtain a sponsor for support in sobriety. 5. In the event of an emergency, call 911/go to nearest emergency department. He verbalized understanding of instructions.
--- NOTE | 2016-08-02 12:03 | SOCIAL WORKER PROG NOTE PSYCH ---
Social Work Progress Note Progress Note Discussed with Maddi Hayes APRN progress of Bigg and discharge planning. Bigg denied SI/HI, no psychosis. His mood is stable. He seems to not be exhibiting agitation or irritability, and is calmer more so than last week. He is future oriented - wants to fix his car and see his . Did a phone conference with Bigg and his vyfebi-ab-jaf, Raysa Tsai , she confirmed there are no guns in Bigg's home. Reviewed Bigg's discharge plan to follow-up in [facility] program with an intake today at 12:45pm for [facility]. [employer] will complete FMLA and Short-Term disability for Bigg to cover him for his inpatient stay. Provided Bigg with a letter with dates of admission. Provided discharge clinical to [facility] , [id number].
[2016-08-02 12:07] VITALS: BP 150/97
== END 2016-08-02 13:30 | DRG 881 ==
LOC: DELPENDDIS → ERH 13:35 → ERHI 07-26 10:12 → CP SOUTH 07-26 10:12 → ENPENDDIS 07-29 23:59 → CP SOUTH 08-02 13:30
PROVIDERS: Physician Assistant Medical; Student in an Organized Health Care Education/Training Program; ADMIT Psychiatry & Neurology Psychiatry
DX: F32.9 Major depressive disorder, single episode, unspecified (principal); I10 Essential (primary) hypertension; F10.20 Alcohol dependence, uncomplicated; F11.10 Opioid abuse, uncomplicated; E78.5 Hyperlipidemia, unspecified
CPT/HCPCS: 36415; 80305; 80307; 93005; 93010; G0480; J3490; J7508